=== PATIENT | female | born 1940 | race Caucasian/White ===

== ENCOUNTER 2017-01-26 19:22 | Inpatient (IN) ==
--- NOTE | 2017-01-26 19:42 | Emergency Department Report ---
General Adult HPI - General Stated complaint: Slow heart rate Time Seen by Provider: 01/26/17 19:41 Source: patient, family Mode of arrival: ambulatory Limitations: no limitations - History of Present Illness HPI narrative: Patient is a 76-year-old female, presents emergent primary for evaluation of chest discomfort shortness of breath low heart rate. 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 Patient does normally get exertional dyspnea. Possibly 2:30 today patient had a sudden episode of severe dyspnea now is just feeling very weak. Patient also at that time had chest pressure radiating to her back nausea no diaphoresis. Patient's family became concerned so judit decided to bring patient to the ER for evaluation. Patient's current heart rate 53, patient states she does normally run in the 50s, however has had 2 episodes today where they checked her heart rate it was down in the 30s. Patient also hypertensive, states she took an extra Toprol today. - Related Data Home Medications Medication Instructions Recorded Confirmed Aspirin [Aspir 81] 81 mg PO DAILY #0 09/04/11 01/26/17 Levothyroxine Sodium [Synthroid] 100 mcg PO DAILY #0 09/04/11 01/26/17 Metoprolol Succinate [Toprol Xl] 100 mg PO BID #0 09/04/11 01/26/17 Pramipexole Di-HCl [Mirapex] 0.5 mg PO DAILY #0 09/04/11 01/26/17 Spironolactone [Aldactone] 25 mg PO DAILY #2 09/04/11 01/26/17 Pantoprazole Sodium [Protonix] 40 mg PO BID #0 01/05/12 01/26/17 Bronte 10 mg-acetaminophen 325 mg 1 tab PO PRN PRN 10/05/16 01/26/17 tablet Zyrtec (Cetirizine) 10 mg tablet 10 mg PO DAILY tab 10/05/16 01/26/17 clonidine HCl 0.1 mg tablet 0.1 mg PO BID 10/05/16 01/26/17 hydralazine 25 mg tablet 25 mg PO TID tab 10/05/16 01/26/17 nifedipine ER 30 mg 30 mg PO DAILY tab 10/05/16 01/26/17 tablet,extended release prednisone 1 mg tablet 2 mg PO DAILY tab 10/05/16 01/26/17 Cholecalciferol (Vitamin D3) 4,000 mg PO DAILY 01/26/17 01/26/17 [Vitamin D3] Infliximab [Remicade] 100 mg IV .Q6W 01/26/17 01/26/17 Magnesium Oxide [Magox 400] 400 mg PO DAILY 01/26/17 01/26/17 Nitrofurantoin Macrocrystal 100 mg PO HS 01/26/17 01/26/17 [Nitrofurantoin] Sertraline [Zoloft] 25 mg PO DAILY 01/26/17 01/26/17 Systane Eye Drops 1 drop OP PRN 01/26/17 01/26/17 Allergies Allergy/AdvReac Type Severity Reaction Status Date / Time duloxetine [From Cymbalta] Allergy Severe hostility Verified 01/10/17 13:54 azithromycin Allergy Unknown Verified 01/26/17 19:59 tramadol Allergy Unknown Verified 01/26/17 19:59 verapamil [From Calan] Allergy Unknown Verified 01/26/17 19:59 gabapentin Allergy Verified 01/26/17 19:59 latex Allergy Verified 01/26/17 19:59 pregabalin [From Lyrica] Allergy swelling Verified 01/26/17 19:59 promethazine HCl Allergy Severe aggitation Uncoded 01/26/17 20:00 Procaine HCl Allergy "float" if Uncoded 12/19/16 14:21 given "too much" Review of Systems Constitutional: Denies: fever, chills, weakness ENT: Denies: throat pain, dental pain Cardiovascular: Reports: chest pain, dyspnea on exertion. Denies: palpitations Respiratory: Reports: dyspnea. Denies: cough, wheezes Gastrointestinal: Denies: abdominal pain, nausea, vomiting Genitourinary: Denies: dysuria, frequency Psychiatric: Denies: anxiety, depression Endocrine: Denies: fatigue, heat or cold intolerance Hematological/Lymphatic: Denies: easy bleeding, easy bruising PFSH Patient Stated Medical History Peripheral Neuropathy Yes Macular Degeneration Yes Cardiac Arrhythmia Yes: atrial tachycardia Hypertension Yes Gastroesophageal Reflux Yes Disease Hx Incontinence Yes Osteoarthritis Yes Other Musculoskeletal Yes: ra, fibromyalgia Post Menopausal Yes Clinic Medical History (Last Reviewed 10/19/16 @ 13:39 by Neva Knight MD) Cataracts, bilateral (Acute Medical) Fibromyalgia (Acute Medical) GERD (gastroesophageal reflux disease) (Acute Medical) Hiatal hernia (Acute Medical) High cholesterol (Acute Medical) Hypertension (Acute Medical) Lymphedema (Acute Medical) Neuropathy (Acute Medical) Osteoarthritis (Acute Medical) Restless leg syndrome (Acute Medical) Rheumatoid arthritis (Acute Medical) Thyroid disease (Acute Medical) Surgical History: Appendectomy 1951, Rt arm fracture 1952, Hysterectomy(partial ) 1971, 2 Breast Biopsies , Gall Bladder Removed 2010, Lt CTR 2011, Colonoscopy 2012, Keioplasty L1 L2 2012, Endoscope 2012 & 2014, Internal Hemrrhoidectomy 2013 Family History: Family History (Last Reviewed 10/19/16 @ 13:39 by Neva Knight MD) Mother Stroke Hypertension Thyroid disease Arthritis Father Hypertension Stroke Liver disease Sister Renal cancer Lung cancer Thyroid disease COPD (chronic obstructive pulmonary disease) Brother Stroke - Social History Smoking status: Former smoker Substance use type: does not use Alcohol intake frequency: does not drink Physical Exam - General General appearance: alert, in no apparent distress - Eye Eye exam: Present: PERRL, EOMI - ENT ENT exam: Present: normal oropharynx, mucous membranes moist - Chest Chest inspection: Present: normal inspection, symmetric chest wall rise. Absent : tenderness - Respiratory Respiratory exam: Present: normal lung sounds bilaterally. Absent: respiratory distress, wheezes, stridor - Cardiovascular Cardiovascular exam: Present: regular rate, bradycardia, normal heart sounds - Abdominal Exam Abdominal exam: Present: soft. Absent: distention, tenderness - Back Exam Back exam: Present: full ROM - Skin Skin exam: Present: warm, dry - Neurological Exam Neurological exam: Present: alert, oriented X3 - Psychiatric Psychiatric exam: Present: normal affect, normal mood Course Vital Signs Temperature 97.6 F 01/26/17 19:24 Pulse Rate 54 L 01/26/17 19:24 Respiratory Rate 18 01/26/17 19:24 Blood Pressure 235/98 H 01/26/17 19:24 Pulse Oximetry 95 01/26/17 19:24 Temperature 97.6 F 01/26/17 19:24 Pulse Rate 63 01/26/17 22:30 Respiratory Rate 18 01/26/17 19:24 Blood Pressure 223/92 H 01/26/17 22:30 Pulse Oximetry 95 01/26/17 19:24 Medical Decision Making - MDM Narrative Medical decision making narrative: Acute DE, STEMI, pulmonary embolus, pneumothorax, pneumonia, hypertensive urgency, hypertensive emergency Laboratories are noncontributory EKG and chest x-ray noncontributory, with the exception of elevated d-dimer at 600. CT scan of chest shows no acute findings, patient's blood pressure has remained elevated despite 50 mg of hydralazine total at this time, last blood pressure 205/84. Patient has a listed ALLERGY to verapamil will start nitroprusside Discuss case with Dr. Goodman, he will admit to the CCU - Medical Records Medical records reviewed: Yes: I reviewed the patient's medical records. - Lab Data Lab results reviewed: Yes: I reviewed the patient's lab results. Result diagrams: 01/26/17 19:49 01/26/17 19:49 Lab Results 01/26/17 01/26/17 01/26/17 Range/Units 19:49 19:49 19:49 WBC 3.7 L (4.5-11.0) T/MM3 RBC 3.87 L (4.00-5.20) M/MM3 Hgb 11.8 L (12-16) GM/DL Hct 36.0 (36-46) % MCV 93.0 (80-100) UM3 MCH 30.5 (26-34) UUG MCHC 32.8 (31-37) GM/DL RDW Std Deviation 50.2 (36.9-50.2) FL Plt Count 232 (130-400) T/MM3 MPV 9.1 L (9.4-12.4) UM3 Immature Gran % (Auto) 0.3 (0.0-0.5) % Neut % (Auto) 56.0 (33-66) % Lymph % (Auto) 33.2 (23-45) % [place]eadle % (Auto) 7.8 (0-9.0) % Eos % (Auto) 1.9 (0-4) % Baso % (Auto) 0.8 (0-2) % Neut # 2.1 (1.8-7.7) T/MM3 Lymph # 1.2 (1-4.8) T/MM3 Beadle # 0.3 (0-0.8) T/MM3 Eos # 0.1 (0-0.5) T/MM3 Baso # 0.0 (0-0.2) T/MM3 Abs Immat Gran (auto) 0.01 (0.00-0.03) T/MM3 D-Dimer 601 H (0-230) NG/ML Turbidity < 20 (0-20) Sodium 141 (134-144) MEQ/L Potassium 4.0 (3.6-5) MEQ/L Chloride 108 H (98-107) MEQ/L Carbon Dioxide 22 (22-30) MEQ/L Anion Gap 11 (5-15) MEQ/L BUN 22.0 H (7-17) MG/DL Creatinine 1.2 (0.7-1.2) MG/DL GFR Calculation 44 BUN/Creatinine Ratio 18 (6-26) RATIO Glucose 95 (65-110) MG/DL Calculated Osmolality 274 (261-280) MOSM/KG Calcium 9.2 (8.4-10.2) MG/DL Total Bilirubin 0.70 (0.20-1.30) MG/DL Icterus Index < 2 (0-7) AST 34 (14-36) U/L ALT 38 (9-52) U/L Alkaline Phosphatase 78 (38-126) U/L Troponin I < 0.012 (0-0.12) ng/ml B-Natriuretic Peptide 381 H (0-175) pg/mL Total Protein 8.2 (6.3-8.2) G/DL Albumin 4.0 (3.5-5.0) G/DL Globulin 4.2 H (2.4-3.6) G/DL Albumin/Globulin Ratio 1.0 L (1.1-2.2) RATIO Specimen Hemolysis < 15 (0-25) - Radiology Data Radiology results reviewed: Yes: I reviewed the patient's radiology results. Chest x-ray chronic changes no acute findings CT scan chest: No pulmonary emboli - EKG Data EKG #1 EKG attestation: Yes: I reviewed and interpreted this EKG. EKG shows normal: sinus rhythm Rate: bradycardia Rhythm: NSR [place]/QRS: normal Interpretation: no acute changes Disposition Clinical Impression: Hypertensive urgency, malignant Disposition: 02 To [facility] Acute Care Condition: Improved Prescriptions: No Action Levothyroxine Sodium [Synthroid] 100 mcg PO DAILY #0 Aspirin [Aspir 81] 81 mg PO DAILY #0 Spironolactone [Aldactone] 25 mg PO DAILY #2 Systane Eye Drops 1 drop OP PRN Cholecalciferol (Vitamin D3) [Vitamin D3] 4,000 mg PO DAILY Sertraline [Zoloft] 25 mg PO DAILY Nitrofurantoin Macrocrystal [Nitrofurantoin] 100 mg PO HS Metoprolol Succinate [Toprol Xl] 100 mg PO BID #0 Pramipexole Di-HCl [Mirapex] 0.5 mg PO DAILY #0 Pantoprazole Sodium [Protonix] 40 mg PO BID #0 Infliximab [Remicade] 100 mg IV .Q6W Magnesium Oxide [Magox 400] 400 mg PO DAILY prednisone 1 mg tablet 2 mg PO DAILY tab Bronte 10 mg-acetaminophen 325 mg tablet 1 tab PO PRN PRN PRN Reason: Pain clonidine HCl 0.1 mg tablet 0.1 mg PO BID nifedipine ER 30 mg tablet,extended release 30 mg PO DAILY tab Zyrtec (Cetirizine) 10 mg tablet 10 mg PO DAILY tab hydralazine 25 mg tablet 25 mg PO TID tab Referrals: Vilma Concepcion DO [Family Provider] - - Seen By: physician
[2017-01-26] MEDS ORDERED: ASPIRIN 81 MG CHEWABLE TABLET PO ONE (19:44)
--- OUTSIDE RECORDS SUMMARY | 2017-01-26 19:49 | External Medical Summary | Referral Summary ---
:1940 Author Organization [facility] Address [address] [place] [address] Care Team Providers Name Role Phone Concepcion Vilma Cullen Primary Care Physician Encounter VC Date(s): 03/13/15 - 03/13/15 [facility] [address] [place] [address] [phone] Final: Abnormal results of pulmonary function studies Discharge Disposition: 01-Home or Self Care Attending Physician: Amadou Miranda MD Admitting Physician: Saira Briones AMS Vital Signs No data available for this section Problem List No data available for this section Allergies, Adverse Reactions, Alerts Substance Reaction Severity Status azithromycin Tongue swelling Active Calan Active Phenergan Active pregabalin Active Symbicort Active traMADol pass out Active Medications cloNIDine 0.1 mg oral tablet mg tabs, Oral, BID, 0 Refill(s) Start Date: 09/26/14 Status: Orderedlevothyroxine 100 mcg (0.1 mg) oral tablet mcg tabs, Oral, Daily, 0 Refill(s) Start Date: 09/26/14 Status: OrderedMetanx Oral, Daily, 0 Refill(s) Start Date: 09/26/14 Status: Orderedpramipexole 0.5 mg oral tablet mg tabs, Oral, TID, 0 Refill(s) Start Date: 09/26/14 Status: Orderedspironolactone 25 mg oral tablet mg tabs, Oral, BID, 0 Refill(s) Start Date: 09/26/14 Status: OrderedToprol-XL 100 mg oral tablet, extended release mg tabs, Oral, Daily, 0 Refill(s) Start Date: 5/15/15 Status: Ordered Results No data available for this section Immunizations No data available for this section Procedures No data available for this section Social History No data available for this section Assessment and Plan No data available for this section
--- OUTSIDE RECORDS SUMMARY | 2017-01-26 19:49 | External Medical Summary | Referral Summary ---
:1940 Author Organization [facility], [facility] Address [address] [place] [address] [place] [address] Care Team Providers Name Role Phone CarleneVilma Primary Care Physician Encounter VC Date(s): 09/26/14 - 09/26/14 [facility], [address] [place] [phone] [phone] Discharge Disposition: 01-Home or Self Care Attending Physician: Mk Lopez MD Admitting Physician: Mk Lopez MD Vital Signs Most recent to oldest [Reference Range]: 1 Temperature Tympanic [36.6-38.1 degC] 37.4 degC (09/26/14 5:12 PM) Peripheral Pulse Rate [60-100 bpm] 74 bpm (09/26/14 5:12 PM) Blood Pressure [90-140/60-90 mmHg] 150/72 mmHg *HI* (09/26/14 5:12 PM) SpO2 94 % (09/26/14 5:12 PM) Problem List No data available for this [...] Daily, 0 Refill(s) Start Date: 09/26/14 Status: Ordered Results No data available for this section Immunizations No data available for this section Procedures No data available for this section Social History No data available for this section Assessment and Plan Extracted from: Title: Office Visit Note Author: Mk Lopez MD Date: 09/26/14 Assessment/Plan Acute bronchitis The overall history and exam is consistent with bronchitis. I would recommend netipot sinus 2 to 3 x a day if you are having trouble with nasal drainage. Mucinex is ok for the cough. If you are not improving by next week call us. If you are experiencing any concerning symptoms call or go to the ER. Orders: amoxicillin-clavulanate, 1 tabs, Oral, q12hr, X 10 days, # 20 tabs, 0 Refill(s), Pharmacy: [id number]
--- OUTSIDE RECORDS SUMMARY | 2017-01-26 19:49 | External Medical Summary | Referral Summary ---
:1940 Author Organization [facility] Address [address] [place] [address] Care Team Providers Name Role Phone Carlene Vilma Cullen Primary Care Physician Encounter VC Date(s): 03/13/15 - 03/13/15 [facility] [address] [place] [address] Discharge Disposition: 01-Home or Self Care Attending Physician: Saira Briones AMS Vital Signs No [...]
[2017-01-26] MEDS ORDERED: HYDRALAZINE 20 MG/ML INJECTION IVP ONE ×3 (19:55→22:24)
[2017-01-26] MEDS: SALINE FLUSH 10ml SYRINGE IVF PRN ×2 (20:20→22:30)
[2017-01-26] MEDS ORDERED: IOHEXOL 350mg/ml 75ml INJECTION ONE (20:46)
[2017-01-26] MEDS ORDERED: SALINE FLUSH 10ml SYRINGE ONE (20:46)
[2017-01-26] MEDS ORDERED: NS 100 ML ONE (20:46)
[2017-01-26] MEDS: NITROPRUSSIDE 50 MG in D5W 250 ML IV PRN (23:23)
[2017-01-26 23:56] VITALS: BMI 43.3
--- NOTE | 2017-01-27 00:27 | History & Physical Report ---
<Arturo Nguyen - Last Filed: 01/27/17 00:22> History of Present Illness Date: 01/27/17 Chief complaint: dyspnea HPI: This is a 76 y/o female with a long standing history of HTN. She is managed by several anti hypertensive medications. Today around 2:30 she had a rather sudden onset of shortness of breath. This has not happened before The patient took her blood pressure and it was significantly elevated. The patient had a brief episode of chest pressure. She also had a mild frontal headache. Because of the shortness of breath and ongoing HTN, the patient presented to the ED where in fact her blood pressure was 205/84 at it's best. The patient states that she usually is in the 120's systolic. The patient denies any recent changes in her medications. She denies any over the counter medications. Attempts to improve the patient's blood pressure with hydralazine were unsuccessful. The patient is admitted into the [facility] on nitroprusside gtt ( allergic to ca krysta) and further cardiac evaluation ongoing. The patient denies any focal neurological concerns. The patient reports that she had a heart cath in the past that was reported to be negative. 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 The patient did have a CT chest angio that was negative for clot. Review of Systems Review of systems: mild headache, no change in vision, no neck or jaw pain, increased dyspnea that is improved but still noticed tonight. no PND or orthopnea,brief chest pressure that was resolved prior to ED presentation. no heart palpitations. Patient noted bradycardia afte she took an exta b krysta to manage her blood pressure, no nausea or vomiting. patient has had a band like abdomen pressure that has been present for a period of time (not clear how long). no change in BM, no urine symptoms, no focal neuro complatints. 12 point ROS otherwise negative except for outlined above [facility] Clinic Medical History (Last Reviewed 10/19/16 @ 13:39 by Neva Knight MD) Cataracts, bilateral (Acute Medical) Fibromyalgia (Acute Medical) GERD (gastroesophageal reflux disease) (Acute Medical) Hiatal hernia (Acute Medical) High cholesterol (Acute Medical) Hypertension (Acute Medical) Lymphedema (Acute Medical) Neuropathy (Acute Medical) Osteoarthritis (Acute Medical) Restless leg syndrome (Acute Medical) Rheumatoid arthritis (Acute Medical) Thyroid disease (Acute Medical) Surgical History: Appendectomy 1951, Rt arm fracture 1952, Hysterectomy(partial ) 1971, 2 Breast Biopsies , Gall Bladder Removed 2010, Lt CTR 2011, Colonoscopy 2012, Keioplasty L1 L2 2012, Endoscope 2012 & 2014, Internal Hemrrhoidectomy 2013 Family History: Family History (Last Reviewed 10/19/16 @ 13:39 by Neva Knight MD) Mother Stroke Hypertension Thyroid disease Arthritis Father Hypertension Stroke Liver disease Sister Renal cancer Lung cancer Thyroid disease COPD (chronic obstructive pulmonary disease) Brother Stroke - Social History Smoking status: Former smoker Medications Home Medications Medication Instructions Recorded Confirmed Type Aspirin [Aspir 81] 81 mg PO DAILY #0 09/04/11 01/26/17 History Levothyroxine Sodium [Synthroid] 100 mcg PO DAILY #0 09/04/11 01/26/17 History Metoprolol Succinate [Toprol Xl] 100 mg PO BID #0 09/04/11 01/26/17 History Pramipexole Di-HCl [Mirapex] 0.5 mg PO DAILY #0 09/04/11 01/26/17 History Spironolactone [Aldactone] 25 mg PO DAILY #2 09/04/11 01/26/17 History Pantoprazole Sodium [Protonix] 40 mg PO BID #0 01/05/12 01/26/17 History [place] 10 mg-acetaminophen 325 mg 1 tab PO PRN PRN 10/05/16 01/26/17 History tablet Zyrtec (Cetirizine) 10 mg tablet 10 mg PO DAILY tab 10/05/16 01/26/17 History clonidine HCl 0.1 mg tablet 0.1 mg PO BID 10/05/16 01/26/17 History hydralazine 25 mg tablet 25 mg PO TID tab 10/05/16 01/26/17 History nifedipine ER 30 mg 30 mg PO DAILY tab 10/05/16 01/26/17 History tablet,extended release prednisone 1 mg tablet 2 mg PO DAILY tab 10/05/16 01/26/17 History Cholecalciferol (Vitamin D3) 4,000 mg PO DAILY 01/26/17 01/26/17 History [Vitamin D3] Infliximab [Remicade] 100 mg IV .Q6W 01/26/17 01/26/17 History Magnesium Oxide [Magox 400] 400 mg PO DAILY 01/26/17 01/26/17 History Nitrofurantoin Macrocrystal 100 mg PO HS 01/26/17 01/26/17 History [Nitrofurantoin] Sertraline [Zoloft] 25 mg PO DAILY 01/26/17 01/26/17 History Systane Eye Drops 1 drop OP PRN 01/26/17 01/26/17 History Allergies Allergy/AdvReac Type Severity Reaction Status Date / Time duloxetine [From Cymbalta] Allergy Severe hostility Verified 01/27/17 00:33 azithromycin Allergy Unknown Verified 01/26/17 19:59 tramadol Allergy Unknown Fainting Verified 01/27/17 09:02 verapamil [From Calan] Allergy Unknown Abdominal Verified 01/27/17 09:02 Pain budesonide [From Symbicort] Allergy Mood Verified 01/27/17 09:04 Disturbance formoterol [From Symbicort] Allergy Mood Verified 01/27/17 09:04 Disturbance gabapentin Allergy Verified 01/26/17 19:59 latex Allergy sensitive Verified 01/27/17 09:03 pregabalin [From Lyrica] Allergy swelling Verified 01/26/17 19:59 promethazine HCl Allergy Severe aggitation Uncoded 01/26/17 20:00 Procaine HCl Allergy Unknown "float" if Uncoded 01/27/17 09:04 given "too much" Exam Vital Signs: Temperature 97.6 F 01/26/17 19:24 Pulse Rate 63 01/26/17 22:30 Respiratory Rate 16 01/26/17 21:15 Blood Pressure 223/92 H 01/26/17 22:30 Pulse Oximetry 94 01/26/17 21:15 Telemetry Rhythm: Sinus Rhythm Height/Weight/BMI: Height 1.63 m Weight 114.6 kg Body Mass Index 43.3 - Constitutional Present: no acute distress, well nourished, well developed, obese, cooperative. Absent: combative, agitated, somnolent, obtunded - Routine HEENT Exam Head: Present: normocephalic, atraumatic Eye: Present: EOMI, PERRL, conjunctivae pink. Absent: scleral injection ENT: Present: mucous membranes moist - Routine Neck Exam Present: supple, full ROM - Routine Respiratory Exam Present: CTA bilaterally Comments: occasional rhonchi in bilateal bases - Routine Cardiovascular Exam Present: RRR, no murmur - Routine Abdominal Exam Present: soft, normoactive bowel sounds, non distended, non tender. Absent: tenderness - Routine Extremities Exam Present: edema, full ROM - Routine Back/Spine/Pelvis Exam Back/Spine: Present: full ROM - Routine Skin Exam Present: intact - Routine Neurological Exam Present: alert, oriented X3, CN II-XII intact, moving all extremities, normal tone, vision grossly intact, hearing grossly intact, normal speech. Absent: sensory deficit, motor deficit, altered mental status, facial asymmetry - Routine Psychiatric Exam Present: normal affect, normal thought process Results - Labs CBC & Chem 7: 01/26/17 19:49 01/26/17 19:49 - ECG Data Tracing #1 normal sinus, no ischemia, suprisingly not significant HtN findings - Imaging and Cardiology CT scan - chest Additional comments: no clot Assessment and Plan (1) Hypertensive urgency, malignant Current visit: Yes Status: Acute 01/27/17 00:34 patient has significantly elevated blood pressure with mild headache and brief chest pain with dyspnea. no evidence of chf on examination or by radioautographic process. patient on b krysta, aldactone, ? catapress, ? hydralazine. need to complete med rec. for now with history of allergyto verapamil cannot do cardene gtt. with gallo with b krysta reported cannot do esmolol drip. Would not recommend NTG gtt yet. Thus ED started nipride. will use this overnight realizing that this cannot be used over ?24 hours or less ( pharmacy can remind) as risk of CN buildup. Not much room to go on b krysta. Not clear why the increased blood pressure. reassess in the am. Obviously monitor on tele with neuro checks. (2) Rheumatoid arthritis Current visit: Yes Status: Acute 01/27/17 00:37 chronic. on remicaid now. MTX toxicity pulmonary. reasonably stable. doubt has any impact on HTN issues tonight (3) Pulmonary fibrosis Current visit: Yes Status: Acute 01/27/17 00:38 relating to MTX toxictiy. no oxygen needs. pulm exam relatively benign. to be aware of (4) GERD (gastroesophageal reflux disease) Current visit: Yes Status: Acute 01/27/17 00:38 continue PPI (5) RLS (restless legs syndrome) Current visit: Yes Status: Acute 01/27/17 00:39 continue mirapex (6) Hypothyroid Current visit: Yes Status: Acute 01/27/17 00:39 continue synthroid DVT Prophylaxis: SCD's, SQ Heparin GI Prophylaxis: Protonix Hospital Course Summary Disclaimer: The visit summary below is not to be considered part of the above Progress Note. <Francisco Escobedo - Last Filed: 01/27/17 11:51> History of Present Illness Date: 01/27/17 [facility] Patient Stated Medical History Migraine Yes Peripheral Neuropathy Yes Macular Degeneration Yes Cardiac Arrhythmia Yes: atrial tachycardia Hypertension Yes Sleep Apnea Yes: borderline Gastroesophageal Reflux Yes Disease Hiatal Hernia Yes Hx Incontinence Yes: night time Osteoarthritis Yes Other Musculoskeletal Yes: ra, fibromyalgia, neuropathy Post Menopausal Yes Other Reproductive uterus removed Clinic Medical History (Last Reviewed 10/19/16 @ 13:39 by Neva Knight MD) Cataracts, bilateral (Acute Medical) Fibromyalgia (Acute Medical) GERD (gastroesophageal reflux disease) (Acute Medical) Hiatal hernia (Acute Medical) High cholesterol (Acute Medical) Hypertension (Acute Medical) Lymphedema (Acute Medical) Neuropathy (Acute Medical) Osteoarthritis (Acute Medical) Restless leg syndrome (Acute Medical) Rheumatoid arthritis (Acute Medical) Thyroid disease (Acute Medical) Family History: Family History (Last Reviewed 10/19/16 @ 13:39 by Neva Knight MD) Mother Stroke Hypertension Thyroid disease Arthritis Father Hypertension Stroke Liver disease Sister Renal cancer Lung cancer Thyroid disease COPD (chronic obstructive pulmonary disease) Brother Stroke Exam Vital Signs: Temperature 99.9 F 01/27/17 06:45 Pulse Rate 73 01/27/17 07:00 Respiratory Rate 28 H 01/27/17 07:00 Blood Pressure 159/71 H 01/27/17 07:00 Pulse Oximetry 95 01/27/17 07:00 Height/Weight/BMI: Height 5 ft 4 in Weight 114.6 kg Body Mass Index 43.3 Results - Labs CBC & Chem 7: 01/27/17 08:31 01/27/17 08:32 Assessment and Plan (1) Hypertensive urgency, malignant Current visit: Yes Status: Acute (2) Rheumatoid arthritis Current visit: Yes Status: Acute (3) Pulmonary fibrosis Current visit: Yes Status: Acute (4) GERD (gastroesophageal reflux disease) Current visit: Yes Status: Acute (5) RLS (restless legs syndrome) Current visit: Yes Status: Acute (6) Hypothyroid Current visit: Yes Status: Acute Assessment and Plan: SUMMARY - Pt has H.O HTN and has been on Clonidine and BB at home, with previous excellent control per her . Pt was placed on Nipride drip and her BP is better. stated pt has been having fibromyalgia with L sided Chest pain that comes and goes. On PE NC/AT TAE Well hydrated Chest clear Abd - soft NT/ND Ext - No edema A/P 1) Uncontrolled HTN, possibly associated with CHF and moderate pulmonary congestion causing her SOB - better with Nipride - Resume Hydralazine - Resume BB at a lower dose (HR is in the 70's) - Resume Clonidine. 2) Atypical CP, could be related to RA or Fibromyalgia but also pt may have CAD - TnI negative. - Cardiology opinion to risk stratify 3) Pulmonary infiltrates - Could be related to Rheumatoid lung, due fibrosis/MTX or edema - Since pt is stable will recheck CXR in the AM - if gone then pulmonary edema could be the explanation. Prevention Lovenox PPI. - Time spent with patient 25 - 35 minutes Hospital Course Summary Disclaimer: The visit summary below is not to be considered part of the above Progress Note.
[2017-01-27] MEDS ORDERED: HEPARIN 5,000unit/ml 1ml INJECTION SUB-Q SCH (00:46)
[2017-01-27] MEDS ORDERED: MORPHINE SULFATE 2 MG SYRINGE IVP PRN (00:46)
[2017-01-27] MEDS ORDERED: ONDANSETRON 4 MG/2 ML INJECTION IVP PRN (06:13)
[2017-01-27] MEDS: SALINE FLUSH 10ml SYRINGE IVF PRN (06:15)
[2017-01-27] MEDS: LEVOTHYROXINE 100 MCG TABLET PO SCH (07:38)
--- NOTE | 2017-01-27 08:00 | CT Scan Report ---
Indication: chest pressure shortness of air elevated d-dimer PROCEDURE: CT angio pulm emboli: Encounter: Initial Comparison: CT chest dated February 11, 2015 Technique: Axial CT pulmonary angiographic phase images were performed through the chest after the administration of intravenous contrast. Coronal and Sagittal MIP reconstructed images were created and reviewed. Automated Exposure Control and Iterative Reconstruction dose reducing techniques were utilized. Contrast: Omnipaque 350 70 mL Findings: Pulmonary arteries: Exam is diagnostic to the subsegmental pulmonary arterial level. No filling defects identified to suggest a pulmonary embolus. Other findings: Stable right upper lobe groundglass nodule and subpleural nodular opacities in the right middle lobe and subpleural atelectasis and scarring.. Slightly increased groundglass opacity in the left upper lobe. No pleural effusion or pneumothorax. The central airways are patent. No axillary or mediastinal adenopathy. Heart size is stable. No pericardial effusion. The upper abdomen shows no acute findings. Bone windows show degenerative changes in the spine with central spinal canal osteophytes at T10-T11 and prior vertebroplasty at L1. Impression: No pulmonary embolus. Scattered pulmonary opacities, many of which are chronic although superimposed acute infection or inflammation cannot be entirely excluded in the left upper lobe. .
--- NOTE | 2017-01-27 08:01 | XRay Report ---
Indication: shortness of air PROCEDURE: XR chest 1V: Encounter: Initial Comparison: CT angiogram of the chest from the same date Findings: Scattered groundglass opacities in the lungs are better seen on the chest CT. No pleural effusion or pneumothorax. Heart size and mediastinal contours are within normal limits. Pulmonary vascularity is normal. Impression: Scattered pulmonary opacities better seen on CT could be due to infection, inflammation or scarring. .
[2017-01-27] MEDS ORDERED: SERTRALINE 25 MG TABLET PO SCH (09:00)
[2017-01-27] MEDS ORDERED: PRAMIPEXOLE 0.5 MG TABLET PO SCH (09:00)
[2017-01-27] MEDS: NITROPRUSSIDE 50 MG in D5W 250 ML IV PRN (09:08)
[2017-01-27] MEDS: HEPARIN SUB-Q 5,000 UNITS/0.5 ML INJECTION SQ SCH ×3 (09:50→23:16)
[2017-01-27] MEDS: ASPIRIN *EC* 81 MG TABLET PO SCH (09:51)
[2017-01-27] MEDS: MAGNESIUM OXIDE 400 MG TABLET PO SCH (09:51)
[2017-01-27] MEDS: PANTOPRAZOLE 40 MG TABLET PO SCH ×2 (09:52→20:58)
[2017-01-27] MEDS: HYDRALAZINE 25 MG TABLET PO SCH ×3 (10:00→19:16)
--- NOTE | 2017-01-27 11:00 | Cardiology Consult Note ---
History of Present Illness Consult date: 01/27/17 <Lorena Adams 01/27/17 11:51> Requesting physician: Francisco Escobedo <Lorena Adams 01/27/17 11:51> Consult reason: chest pain <Lorena Adams 01/27/17 11:51> Chief complaint: dyspnea, chest pain <Lorena Adams 01/27/17 11:51> History of present illness: Neetu is a 76 year old female with a long standing history of HTN. She is managed by several anti hypertensive medications. Yesterday, she had a rather sudden onset of shortness of breath that has not happened before She took her blood pressure and it was significantly elevated and she had a brief episode of chest pressure. She took an extra Toprol XL which was prescribed to her for tachycardia. She also had a mild frontal headache. Because of the shortness of breath and ongoing HTN, she presented to the ED where in fact her blood pressure was 205/84. The patient states that she usually is in the 120's systolic. She denies any recent changes in her medications. She denies any over the counter medications. Attempts to improve the patient's blood pressure with hydralazine were unsuccessful. The patient was admitted into the ICU on nitroprusside gtt with further cardiac evaluation ongoing. She reports that she had a heart cath in the past, she thinks about 10 years ago that was reported to be negative. She does have a history of pulmonary fibrosis from MTX toxicity. In the ED she did have a CT chest angio that was negative for pulmonary emboli. She is seen and examined in CCU. She states chest pressure associated with with SOA was mild like someone was pressing a hand on her chest. She denies recent illness, fever, chills, cough, sore throat, chest pain, N/V/D or difficulty with urination. <Lorena Adams 01/27/17 11:51> Review of Systems - Constitutional Constitutional: Absent: chills, fatigue, fever(s) <Lorena Adams 01/27/17 11:51> - EENMT Eyes: Absent: change in vision <Lorena Adams 01/27/17 11:51> Balance: Absent: vertigo <Lorena Adams 01/27/17 11:51> Mouth/Throat: Absent: sore throat <Lorena Adams 01/27/17 11:51> - Cardiovascular Cardiovascular: Present: chest pain (pressure, not pain), dyspnea on exertion, edema. Absent: palpitations, syncope, orthopnea <Lorena Admas 01/27/17 11 :51> Rhythm: Present: regular rhythm <Lorena Adams 01/27/17 11:51> Vascular: Present: intermittent claudication, pedal edema <BryanLorena melchor 11:51> - Respiratory Respiratory: Present: dyspnea, dyspnea on exertion. Absent: cough <Lorena Adams 01/27/17 11:51> - Gastrointestinal Gastrointestinal: Absent: abdominal pain, constipation, diarrhea, nausea, vomiting <Lorena Adams 01/27/17 11:51> - Genitourinary Genitourinary: Absent: dysuria <Lorena Adams 01/27/17 11:51> - Neurological Neurological: Present: headache(s). Absent: dizziness <Lorena Adams 01/27 11:51> - Endocrine Endocrine: Absent: palpitations <Lorena Adams 01/27/17 11:51> [facility] Patient Stated Medical History Migraine Yes Peripheral Neuropathy Yes Macular Degeneration Yes Cardiac Arrhythmia Yes: atrial tachycardia Hypertension Yes Sleep Apnea Yes: borderline Gastroesophageal Reflux Yes Disease Hiatal Hernia Yes Hx Incontinence Yes: night time Osteoarthritis Yes Other Musculoskeletal Yes: ra, fibromyalgia, neuropathy Post Menopausal Yes Other Reproductive uterus removed Clinic Medical History (Last Reviewed 10/19/16 @ 13:39 by Neva Knight MD) Cataracts, bilateral (Acute Medical) Fibromyalgia (Acute Medical) GERD (gastroesophageal reflux disease) (Acute Medical) Hiatal hernia (Acute Medical) High cholesterol (Acute Medical) Hypertension (Acute Medical) Lymphedema (Acute Medical) Neuropathy (Acute Medical) Osteoarthritis (Acute Medical) Restless leg syndrome (Acute Medical) Rheumatoid arthritis (Acute Medical) Thyroid disease (Acute Medical) <Elia Champion - 02/03/17 13:52> Patient Stated Medical History Migraine Yes Peripheral Neuropathy Yes Macular Degeneration Yes Cardiac Arrhythmia Yes: atrial tachycardia Hypertension Yes Sleep Apnea Yes: borderline Gastroesophageal Reflux Yes Disease Hiatal Hernia Yes Hx Incontinence Yes: night time Osteoarthritis Yes Other Musculoskeletal Yes: ra, fibromyalgia, neuropathy Post Menopausal Yes Other Reproductive uterus removed Clinic Medical History (Last Reviewed 10/19/16 @ 13:39 by Neva Knight MD) Cataracts, bilateral (Acute Medical) Fibromyalgia (Acute Medical) GERD (gastroesophageal reflux disease) (Acute Medical) Hiatal hernia (Acute Medical) High cholesterol (Acute Medical) Hypertension (Acute Medical) Lymphedema (Acute Medical) Neuropathy (Acute Medical) Osteoarthritis (Acute Medical) Restless leg syndrome (Acute Medical) Rheumatoid arthritis (Acute Medical) Thyroid disease (Acute Medical) <Lorena Adams 01/27/17 11:51> Surgical History: Appendectomy 1951, Rt arm fracture 1952, Hysterectomy(partial ) 1971, 2 Breast Biopsies , Gall Bladder Removed 2010, Lt CTR 2011, Colonoscopy 2012, Keioplasty L1 L2 2012, Endoscope 2012 & 2014, Internal Hemrrhoidectomy 2013 <Lorena Adams 01/27/17 11:51> Family History: Family History (Last Reviewed 10/19/16 @ 13:39 by Neva Knight MD) Mother Stroke Hypertension Thyroid disease Arthritis Father Hypertension Stroke Liver disease Sister Renal cancer Lung cancer Thyroid disease COPD (chronic obstructive pulmonary disease) Brother Stroke <Elia Champion - 02/03/17 13:52> Family History (Last Reviewed 10/19/16 @ 13:39 by Neva Knight MD) Mother Stroke Hypertension Thyroid disease Arthritis Father Hypertension Stroke Liver disease Sister Renal cancer Lung cancer Thyroid disease COPD (chronic obstructive pulmonary disease) Brother Stroke <Lorena Adams 01/27/17 11:51> - Social History Smoking status: Former smoker <Lorena Adams 01/27/17 11:51> Alcohol intake frequency: does not drink <Lorena Adams 01/27/17 11:51> Household members: spouse <Lorena Adams 01/27/17 11:51> Current occupational status: retired <Lorena Adams 01/27/17 11:51> Current residence: Apartment/Private Home <Lorena Adams 01/27/17 11:51> Medications Home Medications Medication Instructions Recorded Confirmed Type Aspirin [Aspir 81] 81 mg PO DAILY #0 09/04/11 01/26/17 History Levothyroxine Sodium [Synthroid] 100 mcg PO DAILY #0 09/04/11 01/26/17 History Pramipexole Di-HCl [Mirapex] 0.5 mg PO DAILY #0 09/04/11 01/26/17 History Spironolactone [Aldactone] 25 mg PO DAILY #2 09/04/11 01/26/17 History Pantoprazole Sodium [Protonix] 40 mg PO BID #0 01/05/12 01/26/17 History Sharon 10 mg-acetaminophen 325 mg 1 tab PO PRN PRN 10/05/16 01/26/17 History tablet Zyrtec (Cetirizine) 10 mg tablet 10 mg PO DAILY tab 10/05/16 01/26/17 History hydralazine 25 mg tablet 25 mg PO TID tab 10/05/16 01/26/17 History prednisone 1 mg tablet 2 mg PO DAILY tab 10/05/16 01/26/17 History Cholecalciferol (Vitamin D3) 4,000 mg PO DAILY 01/26/17 01/26/17 History [Vitamin D3] Infliximab [Remicade] 100 mg IV .Q6W 01/26/17 01/26/17 History Magnesium Oxide [Magox 400] 400 mg PO DAILY 01/26/17 01/26/17 History Sertraline [Zoloft] 25 mg PO DAILY 01/26/17 01/26/17 History Systane Eye Drops 1 drop OP PRN 01/26/17 01/26/17 History <Elia Champion - 02/03/17 13:52> Allergies Allergy/AdvReac Type Severity Reaction Status Date / Time duloxetine [From Cymbalta] Allergy Severe hostility Verified 01/27/17 00:33 azithromycin Allergy Unknown Verified 01/26/17 19:59 tramadol Allergy Unknown Fainting Verified 01/27/17 09:02 verapamil [From Calan] Allergy Unknown Abdominal Verified 01/27/17 09:02 Pain budesonide [From Symbicort] Allergy Mood Verified 01/27/17 09:04 Disturbance formoterol [From Symbicort] Allergy Mood Verified 01/27/17 09:04 Disturbance gabapentin Allergy Verified 01/26/17 19:59 latex Allergy sensitive Verified 01/27/17 09:03 pregabalin [From Lyrica] Allergy swelling Verified 01/26/17 19:59 promethazine HCl Allergy Severe aggitation Uncoded 01/26/17 20:00 Procaine HCl Allergy Unknown "float" if Uncoded 01/27/17 09:04 given "too much" <Elia Champion - 02/03/17 13:52> Exam Vital signs: Temperature 96.7 F L 01/31/17 11:56 Pulse Rate 57 L 01/31/17 11:56 Respiratory Rate 12 01/31/17 11:56 Blood Pressure 130/65 01/31/17 11:56 Pulse Oximetry 93 01/31/17 11:56 <Elia Champion - 02/03/17 13:52> Temperature 99.9 F 01/27/17 06:45 Pulse Rate 73 01/27/17 07:00 Respiratory Rate 28 H 01/27/17 07:00 Blood Pressure 159/71 H 01/27/17 07:00 Pulse Oximetry 95 01/27/17 07:00 <Lorena Adams 01/27/17 11:51> - Constitutional no acute distress, morbidly obese, cooperative <Lorena Adams 01/27/17 11: 51> - Routine HEENT Exam Head: Present: normocephalic <Lorena Adams 01/27/17 11:51> ENT: Present: mucous membranes moist <Lorena Adams 01/27/17 11:51> - Routine Neck Exam Absent: JVD, carotid bruit <Lorena Adams 01/27/17 11:51> - Routine Chest/Breast/Axilla Exam Chest wall: Absent: tenderness <Lorena Adams 01/27/17 11:51> - Routine Respiratory Exam Present: CTA bilaterally, diminished air movement. Absent: rales, wheezes < Lorena Adams 01/27/17 11:51> - Routine Cardiovascular Exam Present: RRR, no murmur. Absent: JVD <Lorena Adams 01/27/17 11:51> - Routine Abdominal Exam Present: soft, normoactive bowel sounds <Lorena Adams 01/27/17 11:51> - Routine Extremities Exam Present: edema (trace bilateral) <Lorena Adams - 01/27/17 11:51> - Routine Skin Exam Present: intact, dry, warm <Lorena Adams - 01/27/17 11:51> - Routine Neurological Exam Present: alert, oriented X3 <Lorena Adams - 01/27/17 11:51> - Routine Psychiatric Exam Present: normal affect, normal thought process <Lorena Adams - 01/27/17 11: 51> Results 01/31/17 04:32 01/31/17 04:33 <Elia Champion - 02/03/17 13:52> Cardiac Enzymes 01/27/17 01/27/17 Range/Units 03:00 08:32 AST 35 (14-36) U/L Troponin I 0.013 0.027 D (0-0.12) ng/ml CBC 01/27/17 01/27/17 Range/Units 03:00 08:31 WBC 4.1 L 3.7 L (4.5-11.0) T/MM3 RBC 3.88 L 3.65 L (4.00-5.20) M/MM3 Hgb 12.0 11.1 L (12-16) GM/DL Hct 38.0 34.2 L (36-46) % Plt Count 232 233 (130-400) T/MM3 Neut # 2.6 2.3 (1.8-7.7) T/MM3 Lymph # 1.1 1.1 (1-4.8) T/MM3 [place] # 0.3 0.2 (0-0.8) T/MM3 Eos # 0.1 0.0 (0-0.5) T/MM3 Baso # 0.0 0.0 (0-0.2) T/MM3 Comprehensive Metabolic Panel 01/27/17 01/27/17 Range/Units 03:00 08:32 Sodium 140 140 (134-144) MEQ/L Potassium 3.9 4.2 (3.6-5) MEQ/L Chloride 108 H 109 H (98-107) MEQ/L Carbon Dioxide 20 L 22 (22-30) MEQ/L BUN 21.0 H 20.0 H (7-17) MG/DL Creatinine 1.2 1.3 H D (0.7-1.2) MG/DL Glucose 116 H 109 (65-110) MG/DL Calcium 9.0 9.0 (8.4-10.2) MG/DL AST 35 (14-36) U/L ALT 36 (9-52) U/L Alkaline Phosphatase 70 (38-126) U/L Total Protein 7.6 (6.3-8.2) G/DL Albumin 3.7 (3.5-5.0) G/DL Intake and Output 01/26/17 01/27/17 01/27/17 22:59 06:59 14:59 Intake Total 162.041 / 162.041 206.48 / 206.48 Output Total 225 / 225 Balance -62.959 / -62.959 206.48 / 206.48 Intake: IV 132.041 / 132.041 86.48 / 86.48 Nipride 50 mg In Dextrose 132.041 / 132.041 86.48 / 86.48 5% in Water 250 ml @ 0.3 MCG/KG/MIN 11.64 mls/hr IV .[id number] PRN Rx#: [id number] Oral 30 / 30 120 / 120 Output: Urine 225 / 225 Other: Urine Appearance Clear Urine Color Yellow Weight 252 lb 10.396 oz Laboratory Results - last 48 hr 01/26/17 01/26/17 01/26/17 19:49 19:49 19:49 WBC 3.7 L RBC 3.87 L Hgb 11.8 L Hct 36.0 MCV 93.0 MCH 30.5 MCHC 32.8 RDW Std Deviation 50.2 Plt Count 232 MPV 9.1 L Immature Gran % (Auto) 0.3 Neut % (Auto) 56.0 Lymph % (Auto) 33.2 [place] % (Auto) 7.8 Eos % (Auto) 1.9 Baso % (Auto) 0.8 Neut # 2.1 Lymph # 1.2 [place] # 0.3 Eos # 0.1 Baso # 0.0 Abs Immat Gran (auto) 0.01 D-Dimer 601 H Turbidity < 20 Sodium 141 Potassium 4.0 Chloride 108 H Carbon Dioxide 22 Anion Gap 11 BUN 22.0 H Creatinine 1.2 GFR Calculation 44 BUN/Creatinine Ratio 18 Glucose 95 Calculated Osmolality 274 Calcium 9.2 Magnesium Total Bilirubin 0.70 Icterus Index < 2 AST 34 ALT 38 Alkaline Phosphatase 78 Troponin I < 0.012 B-Natriuretic Peptide 381 H Total Protein 8.2 Albumin 4.0 Globulin 4.2 H Albumin/Globulin Ratio 1.0 L Specimen Hemolysis < 15 01/27/17 01/27/17 01/27/17 03:00 03:00 08:31 WBC 4.1 L 3.7 L RBC 3.88 L 3.65 L Hgb 12.0 11.1 L Hct 38.0 34.2 L MCV 97.9 93.7 MCH 30.9 30.4 MCHC 31.6 32.5 RDW Std Deviation 58.1 H 52.1 H Plt Count 232 233 MPV 9.1 L 9.1 L Immature Gran % (Auto) 0.2 0.3 Neut % (Auto) 64.5 62.4 Lymph % (Auto) 26.4 31.1 [place] % (Auto) 6.7 5.2 Eos % (Auto) 1.2 0.5 Baso % (Auto) 1.0 0.5 Neut # 2.6 2.3 Lymph # 1.1 1.1 [place] # 0.3 0.2 Eos # 0.1 0.0 Baso # 0.0 0.0 Abs Immat Gran (auto) 0.01 0.01 D-Dimer Turbidity < 20 Sodium 140 Potassium 3.9 Chloride 108 H Carbon Dioxide 20 L Anion Gap 12 BUN 21.0 H Creatinine 1.2 GFR Calculation 44 BUN/Creatinine Ratio 18 Glucose 116 H Calculated Osmolality 273 Calcium 9.0 Magnesium 1.9 Total Bilirubin 0.80 Icterus Index < 2 AST 35 ALT 36 Alkaline Phosphatase 70 Troponin I 0.013 B-Natriuretic Peptide Total Protein 7.6 Albumin 3.7 Globulin 3.9 H Albumin/Globulin Ratio 0.9 L Specimen Hemolysis 23 01/27/17 08:32 WBC RBC Hgb Hct MCV MCH MCHC RDW Std Deviation Plt Count MPV Immature Gran % (Auto) Neut % (Auto) Lymph % (Auto) [place] % (Auto) Eos % (Auto) Baso % (Auto) Neut # Lymph # [place] # Eos # Baso # Abs Immat Gran (auto) D-Dimer Turbidity < 20 Sodium 140 Potassium 4.2 Chloride 109 H Carbon Dioxide 22 Anion Gap 9 BUN 20.0 H Creatinine 1.3 H D GFR Calculation 40 BUN/Creatinine Ratio 15 Glucose 109 Calculated Osmolality 273 Calcium 9.0 Magnesium 2.0 Total Bilirubin Icterus Index < 2 AST ALT Alkaline Phosphatase Troponin I 0.027 D B-Natriuretic Peptide Total Protein Albumin Globulin Albumin/Globulin Ratio Specimen Hemolysis < 15 <Lorena Adams - 01/27/17 11:51> - Imaging and Cardiology Echo: pending <Lorena Adams - 01/27/17 11:51> EKG results: image reviewed <Lorena Adams - 01/27/17 11:51> Imaging & Cardiology Narrative: Date of Exam: 01/26/17 Ordering Provider: Celso Wade MD Type of Exam(s): XR chest 1V Reason for Exam(s): shortness of air Indication: shortness of air PROCEDURE: XR chest 1V: Encounter: Initial Comparison: CT angiogram of the chest from the same date Findings: Scattered groundglass opacities in the lungs are better seen on the chest CT. No pleural effusion or pneumothorax. Heart size and mediastinal contours are within normal limits. Pulmonary vascularity is normal. Impression: Scattered pulmonary opacities better seen on CT could be due to infection, inflammation or scarring. 01/27/17 15:00 Date of Exam: 01/27/17 Ordering Provider: Lorena Adams APRN Type of Exam(s): US renal doppler Reason for Exam(s): HTN Indication: HTN PROCEDURE: US renal doppler: Encounter: Initial Comparison: None Technique: Grayscale and color Doppler sonographic imaging of both kidneys was performed with duplex evaluation of the renal arteries. Findings: Scans of the kidneys demonstrate normal morphology. The right kidney measures 9.8 cm in length. The left kidney measures 11.6 cm in length. There is no collecting system dilatation, contour deforming mass, nephrolithiasis, or abnormal perinephric fluid collection. Color Doppler imaging demonstrates normal vascularization. Resistive indices from the intrarenal arteries in the upper, middle, and lower portions of the right kidney are elevated. Resistive indices from the intrarenal arteries in the upper, middle, and lower portions of the left kidney are elevated. Arterial waveforms are normal. Impression: 1. No evidence of hemodynamically significant renal arterial stenosis. 2. Elevated resistive indices in the kidneys which are nonspecific but most commonly due to medical renal disease. Other causes include acute tubular necrosis. <Lorena Adams - 01/27/17 15:00> EKG interpretations - EKG EKG results cardiology: sinus rhythm <Lorena Adams - 01/27/17 11:51> EKG shows: bradycardia <Lorena Adams - 01/27/17 11:51> - Dysrhythmias Sinus rhythms and dysrhythmias: sinus rhythm <Lorena Adams - 01/27/17 11:51> Assessment and Plan - Attestation Attestation Narrative: 02/03/17 13:52 Recommendation After examining the patient I agree with the above assessment. I am involved in the formulation of the patient's plan of care. <Florencio Championsein - 02/03/17 13:52> - Assessment and Plan (1) Hypertensive urgency, malignant Status: Resolved (2) Pulmonary fibrosis Status: Chronic (3) Chest pain Status: Resolved <Elia Champion - 02/03/17 13:52> (1) Hypertensive urgency, malignant Status: Resolved Currently on Nitroprusside drip, with good control of BP. - Increase home Nifedipine to 60mg daily, - Increase Clonidine to 0.2mg daily. - Change home Metoprolol to Labetalol 100mg BID. - 24 urine for VMA, catecholamines, metanephrines and protein - renal artery duplex (2) Pulmonary fibrosis Status: Chronic (3) Chest pain Status: Acute Denies chest pain, states it was a pressure. Serial troponin levels are negative , EKG without ST changes. Patient has the following cardiac risk factors: HTN, HLD <Lorena Adams - 01/30/17 15:44> Hospital Course Summary Disclaimer: The visit summary below is not to be considered part of the above Progress Note. <BrandonjackyFlorencioElia - 02/03/17 13:52> The visit summary below is not to be considered part of the above Progress Note. <Lorena Adams Yeison - 01/27/17 11:51> Sepsis Assessment - Evaluation Sepsis screening result: No Definite Risk <Lorena Adams 01/27/17 11:51>
--- NOTE | 2017-01-27 12:44 | Ultrasound Report ---
Indication: HTN PROCEDURE: US renal doppler: Encounter: Initial Comparison: None Technique: Grayscale and color Doppler sonographic imaging of both kidneys was performed with duplex evaluation of the renal arteries. Findings: Scans of the kidneys demonstrate normal morphology. The right kidney measures 9.8 cm in length. The left kidney measures 11.6 cm in length. There is no collecting system dilatation, contour deforming mass, nephrolithiasis, or abnormal perinephric fluid collection. Color Doppler imaging demonstrates normal vascularization. Resistive indices from the intrarenal arteries in the upper, middle, and lower portions of the right kidney are elevated. Resistive indices from the intrarenal arteries in the upper, middle, and lower portions of the left kidney are elevated. Arterial waveforms are normal. Impression: 1. No evidence of hemodynamically significant renal arterial stenosis. 2. Elevated resistive indices in the kidneys which are nonspecific but most commonly due to medical renal disease. Other causes include acute tubular necrosis. .
--- NOTE | 2017-01-27 14:54 | Echocardiogram ---
DATE OF PROCEDURE January 27, [address] Francisco Escobedo This is a two-dimensional echo with spectral Doppler, color-flow and M-mode. It was obtained in a patient with hypertension. Left atrial dimension is increased. Left ventricle end-diastolic dimension is increased. Left ventricle wall thickness is normal. LV systolic function is normal with ejection fraction of 65%. Right atrium is normal. Right ventricle is normal. Aortic root dimension is normal. Mitral valve annulus is calcified. Mitral valve leaflets are sclerotic with no stenosis. Mild mitral regurgitation is present. Aortic valve is a trileaflet structure with no stenosis or insufficiency. Tricuspid valve shows mild tricuspid regurgitation with moderate pulmonary hypertension with estimated pulmonary artery systolic pressure of 52. Pulmonary valve shows mild pulmonary insufficiency. There is no pericardial effusion. IMPRESSION 1. Left atrial dilation. 2. Mild left ventricular dilation. 3. Normal LV systolic function with ejection fraction of 65%. 4. Mitral annulus calcification with mitral sclerosis and mild mitral regurgitation. 5. Mild tricuspid regurgitation with moderate pulmonary hypertension with estimated pulmonary artery systolic pressure of 52. 6. Mild pulmonary insufficiency. MTDD
[2017-01-27] MEDS: PRAMIPEXOLE 0.5 MG TABLET PO SCH (20:57)
[2017-01-27] MEDS: LABETALOL 100 MG TABLET PO SCH (20:58)
[2017-01-27] MEDS: SERTRALINE 25 MG TABLET PO SCH (20:59)
[2017-01-28] MEDS: CEFTRIAXONE 1 G in NS 100 ML IV SCH ×2 (00:42→23:17)
[2017-01-28] MEDS: NS FLUSH BAG 500ml IV PRN (00:49)
[2017-01-28] MEDS: LEVOTHYROXINE 100 MCG TABLET PO SCH (05:30)
[2017-01-28] MEDS: HYDRALAZINE 25 MG TABLET PO SCH ×3 (09:11→17:20)
[2017-01-28] MEDS: ASPIRIN *EC* 81 MG TABLET PO SCH (09:11)
[2017-01-28] MEDS: LABETALOL 100 MG TABLET PO SCH ×2 (09:11→21:06)
[2017-01-28] MEDS: HEPARIN SUB-Q 5,000 UNITS/0.5 ML INJECTION SQ SCH ×3 (09:11→23:18)
[2017-01-28] MEDS: MAGNESIUM OXIDE 400 MG TABLET PO SCH (09:11)
[2017-01-28] MEDS: SALINE FLUSH 10ml SYRINGE IVF PRN (09:12)
[2017-01-28] MEDS: PANTOPRAZOLE 40 MG TABLET PO SCH ×2 (09:12→21:05)
[2017-01-28] MEDS ORDERED: MINOXIDIL 2.5 MG TABLET PO SCH (09:30)
--- NOTE | 2017-01-28 10:52 | Progress Note ---
Subjective: Pt states is feeling much better, SBP is at 185 now, DBP is normal. Off Nipride drip, saturating well on RA, oriented x 3, looks pretty comfortable. Objective Vital signs: Temperature 97.4 F 01/28/17 08:00 Pulse Rate 63 01/28/17 10:00 Respiratory Rate 28 H 01/28/17 10:00 Blood Pressure 186/79 H 01/28/17 10:00 Pulse Oximetry 95 01/28/17 10:00 Rhythm: Normal Sinus Rhythm Height/Weight/BMI: Height 5 ft 4 in Weight 114.6 kg Body Mass Index 43.3 - Constitutional Present: no acute distress - Routine HEENT Exam Head: Present: normocephalic, atraumatic Eye: Present: EOMI, PERRL ENT: Present: mucous membranes moist - Routine Respiratory Exam Present: CTA bilaterally - Routine Cardiovascular Exam Present: RRR, S1, S2 - Routine Extremities Exam Absent: cyanosis, clubbing, edema - Routine Neurological Exam Present: alert, oriented X3, CN II-XII intact - Routine Psychiatric Exam Present: normal affect, cooperative, good insight, good judgment Results - Labs CBC & Chem 7: 01/28/17 04:24 01/28/17 04:24 Microbiology Results: Microbiology 01/27/17 23:13 Urine, Voided (Cc/notcc) Urine Culture - Preliminary Culture Initiated - Results Pending Assessment and Plan (1) Hypertensive urgency, malignant Current visit: Yes Status: Acute 01/27/17 00:34 patient has significantly elevated blood pressure with mild headache and brief chest pain with dyspnea. no evidence of chf on examination or by radioautographic process. patient on b krysta, aldactone, ? catapress, ? hydralazine. need to complete med rec. for now with history of allergyto verapamil cannot do cardene gtt. with gallo with b krysta reported cannot do esmolol drip. Would not recommend NTG gtt yet. Thus ED started nipride. will use this overnight realizing that this cannot be used over ?24 hours or less ( pharmacy can remind) as risk of CN buildup. Not much room to go on b krysta. Not clear why the increased blood pressure. reassess in the am. Obviously monitor on tele with neuro checks. (2) Rheumatoid arthritis Current visit: Yes Status: Chronic 01/27/17 00:37 chronic. on remicaid now. MTX toxicity pulmonary. reasonably stable. doubt has any impact on HTN issues tonight (3) Pulmonary fibrosis Current visit: Yes Status: Chronic 01/27/17 00:38 relating to MTX toxictiy. no oxygen needs. pulm exam relatively benign. to be aware of (4) GERD (gastroesophageal reflux disease) Current visit: Yes Status: Chronic 01/27/17 00:38 continue PPI (5) RLS (restless legs syndrome) Current visit: Yes Status: Chronic 01/27/17 00:39 continue mirapex (6) Hypothyroid Current visit: Yes Status: Chronic 01/27/17 00:39 continue synthroid DVT Prophylaxis: SQ Heparin GI Prophylaxis: other Resuscitation Status: Full Code Assessment and Plan: This is a 76 YO female that came to us with uncontrolled HTN and required Nipride drip and ICU care, she has stabilized and her BP is much better now, having at this time residual pure systolic HTN. A/P 1) Uncontrolled HTN, possibly associated with CHF and moderate pulmonary congestion causing her SOB - Improved. - No YAIMA - Workup for Pheochromocytoma is ongoing. - Continue Clonidine, BB, Hydralazine. 2) Atypical CP, could be related to RA or Fibromyalgia but also pt may have CAD - TnI negative. - May need a stress test as outpatient to risk stratify. 3) Pulmonary infiltrates - Could be related to Rheumatoid lung, due fibrosis/MTX or edema - Since pt is stable will recheck CXR later today - if gone then pulmonary edema could be the explanation. Prevention Lovenox PPI. - Time spent with patient 25 - 35 minutes Sepsis Assessment - Evaluation Sepsis screening result: No Definite Risk Hospital Course Summary Disclaimer: The visit summary below is not to be considered part of the above Progress Note.
[2017-01-28] MEDS: SERTRALINE 25 MG TABLET PO SCH (21:05)
[2017-01-28] MEDS: PRAMIPEXOLE 0.5 MG TABLET PO SCH (21:05)
[2017-01-29] MEDS: CEFTRIAXONE 1 G in NS 100 ML IV SCH (00:15)
[2017-01-29] MEDS: LEVOTHYROXINE 100 MCG TABLET PO SCH (06:21)
[2017-01-29] MEDS: HEPARIN SUB-Q 5,000 UNITS/0.5 ML INJECTION SQ SCH ×2 (09:03→17:03)
[2017-01-29] MEDS: MAGNESIUM OXIDE 400 MG TABLET PO SCH (09:03)
[2017-01-29] MEDS: LABETALOL 100 MG TABLET PO SCH ×2 (09:03→20:34)
[2017-01-29] MEDS: HYDRALAZINE 25 MG TABLET PO SCH ×3 (09:03→17:03)
[2017-01-29] MEDS: ASPIRIN *EC* 81 MG TABLET PO SCH (09:03)
[2017-01-29] MEDS: PANTOPRAZOLE 40 MG TABLET PO SCH ×2 (09:03→20:33)
--- NOTE | 2017-01-29 11:36 | XRay Report ---
INDICATION: F/U infiltrates seen in admision CXR PROCEDURE: CHEST 2-VIEWS UPRIGHT (PA & LAT) Encounter: Initial COMPARISON: January 26, 2017 FINDINGS: Increased linear markings in the left mid to lower lung field. Most of this probably represents scarring. No consolidative lobar pneumonia. No pleural effusion or pneumothorax. Heart size and mediastinal contours are within normal limits. Pulmonary vascularity is normal. Old treated lumbar compression fractures. Impression: Areas of linear scarring in the left base without focal pneumonia or overt congestive failure. .
--- NOTE | 2017-01-29 12:32 | Progress Note ---
Subjective: Mrs. Sánchez was up in a chair when seen. She complained of pain in her low back which increases with inspiration. She complained of mild exertional dyspnea and sensation of congestion in her chest and of the need to cough although she can't cough. She denied chest pain, nausea, or fevers. She reports that she has minor shakiness in her hands and that this is new. She complains of significant fatigue. She denied dysuria or difficulty voiding. Objective Vital signs: Temperature 98.0 F 01/29/17 08:00 Pulse Rate 56 L 01/29/17 12:15 Respiratory Rate 28 H 01/29/17 12:00 Blood Pressure 144/67 H 01/29/17 12:00 Pulse Oximetry 96 01/29/17 12:00 EXAM General-NAD, alert HEENT-PERR, EOMI, conjunctiva clear, sclera anicteric, oropharynx clear, neck supple Lungs-respirations nonlabored, good airflow, breath sounds clear Cardiac-regular rhythm, S1-S2 Abd-soft, nontender, bowel sounds present/active Ext-+1 edema bilateral lower extremities, rheumatoid nodules at the DIPs bilaterally, no ulnar deviation Neuro-MAEW Psych-calm, cooperative, pleasant - Rhythm: Normal Sinus Rhythm Height/Weight/BMI: Height 1.63 m Weight 116 kg Body Mass Index 43.3 Results - Labs CBC & Chem 7: 01/29/17 04:08 01/29/17 04:08 Labs: Magnesium 2.1 Microbiology Results: Microbiology 01/27/17 23:13 Urine, Voided (Cc/notcc) Urine Culture - Preliminary Escherichia coli - Imaging and Cardiology Chest x-ray Status: image reviewed by me (LESTER) Assessment and Plan (1) Hypertensive urgency, malignant Current visit: Yes Status: Acute (2) Rheumatoid arthritis Current visit: Yes Status: Chronic (3) GERD (gastroesophageal reflux disease) Current visit: Yes Status: Chronic (4) RLS (restless legs syndrome) Current visit: Yes Status: Chronic (5) Hypothyroid Current visit: Yes Status: Chronic DVT Prophylaxis: SQ Heparin GI Prophylaxis: Protonix Resuscitation Status: Full Code Assessment and Plan: Assessment: Malignant hypertension Chest pain Rheumatoid arthritis Escherichia coli UTI CKD, stage III Fibromyalgia GERD Restless leg syndrome Hypothyroidism, TSH 2.04 on 01/28/17 Pulmonary hypertension, PAP 52 Neutropenia, normocytic anemia Plan: Patient remains off nipride drip; has been converted from metoprolol 100 twice a day to labetalol 100 twice a day, clonidine increased from 0.1 to 0.2 twice a day, and nifedipine ER increased from 30 to 60 daily. Remains on hydralazine at 25 mg 3 times daily. Was previously on spironolactone and diuretics have not been resumed. Blood pressures variable with systolics ranging from 124-165 in the past 6 hours. Stable to transfer out of the ICU and increase activities. May require further adjustments in dosing. Resume spironolactone at this time. 24 hour urine for catecholamines/metanephrine pending. Renal sonogram with Doppler without evidence of renal artery stenosis but consistent with chronic kidney disease. No indication of pulmonary edema or pulmonary fibrosis on repeat chest x-ray yesterday. Urine culture with > 100,000 colonies Escherichia coli, sensitivities pending, continue ceftriaxone at present. Minimal elevation in troponin-EKG without acute changes. Chest pain likely muscular. Echocardiogram preserved ejection fraction of 65% and moderate pulmonary hypertension. Mild MR. Continue home dose levothyroxin and home regimen for restless legs/GERD. [place] 10 resumed when necessary for arthralgias/myalgias. Supplemental history provided by nursing, chest x-ray/EKG reviewed by myself, echocardiogram report reviewed, laboratory data reviewed, additional studies ordered. Sepsis Assessment - Evaluation Sepsis screening result: No Definite Risk Hospital Course Summary Disclaimer: The visit summary below is not to be considered part of the above Progress Note. Hospital Course: 01/28/17 This is a 76 YO female that came to us with uncontrolled HTN and required Nipride drip and ICU care, she has stabilized and her BP is much better now, having at this time residual pure systolic HTN. A/P 1) Uncontrolled HTN, possibly associated with CHF and moderate pulmonary congestion causing her SOB - Improved. - No YAIMA - Workup for Pheochromocytoma is ongoing. - Continue Clonidine, BB, Hydralazine. 2) Atypical CP, could be related to RA or Fibromyalgia but also pt may have CAD - TnI negative. - May need a stress test as outpatient to risk stratify. 3) Pulmonary infiltrates - Could be related to Rheumatoid lung, due fibrosis/MTX or edema - Since pt is stable will recheck CXR later today - if gone then pulmonary edema could be the explanation. 01/29/17 Patient remains off nipride drip; has been converted from metoprolol 100 twice a day to labetalol 100 twice a day, clonidine increased from 0.1 to 0.2 twice a day, and nifedipine ER increased from 30 to 60 daily. Remains on hydralazine at 25 mg 3 times daily. Was previously on spironolactone and diuretics have not been resumed. Blood pressures variable with systolics ranging from 124-165 in the past 6 hours. Stable to transfer out of the ICU and increase activities. May require further adjustments in dosing. Resume spironolactone. 24 hour urine for catecholamines/metanephrine pending. Renal sonogram with Doppler without evidence of renal artery stenosis but consistent with chronic kidney disease. No indication of pulmonary edema or pulmonary fibrosis on repeat chest x-ray yesterday. Urine culture with > 100,000 colonies Escherichia coli, sensitivities pending, continue ceftriaxone at present. Minimal elevation in troponin-EKG without acute changes. Chest pain likely muscular. Echocardiogram preserved ejection fraction of 65% and moderate pulmonary hypertension. Mild MR. Continue home dose levothyroxin and home regimen for restless legs/GERD. [place] 10 resumed when necessary for arthralgias/myalgias.
[2017-01-29] MEDS: HYDROCODONE/APAP 10 MG/325 MG TABLET PO PRN ×2 (12:47→23:10)
[2017-01-29] MEDS: SPIRONOLACTONE 25 MG TABLET PO SCH (13:43)
[2017-01-29] MEDS: CETIRIZINE 10 MG TABLET PO SCH (15:18)
[2017-01-29] MEDS: PRAMIPEXOLE 0.5 MG TABLET PO SCH (20:33)
[2017-01-29] MEDS: SERTRALINE 25 MG TABLET PO SCH (20:38)
[2017-01-30] MEDS: NS FLUSH BAG 500ml IV PRN (00:17)
[2017-01-30] MEDS: SALINE FLUSH 10ml SYRINGE IVF PRN ×2 (00:17→08:43)
[2017-01-30] MEDS: CEFTRIAXONE 1 G in NS 100 ML IV SCH ×2 (00:18→23:50)
[2017-01-30] MEDS: HEPARIN SUB-Q 5,000 UNITS/0.5 ML INJECTION SQ SCH ×4 (00:18→23:50)
[2017-01-30] MEDS: LEVOTHYROXINE 100 MCG TABLET PO SCH (05:42)
[2017-01-30] MEDS: MAGNESIUM OXIDE 400 MG TABLET PO SCH (08:44)
[2017-01-30] MEDS: CETIRIZINE 10 MG TABLET PO SCH (08:44)
[2017-01-30] MEDS: SPIRONOLACTONE 25 MG TABLET PO SCH (08:44)
[2017-01-30] MEDS: ASPIRIN *EC* 81 MG TABLET PO SCH (08:44)
[2017-01-30] MEDS: LABETALOL 100 MG TABLET PO SCH ×2 (08:44→21:40)
[2017-01-30] MEDS: HYDRALAZINE 25 MG TABLET PO SCH ×3 (08:44→18:17)
[2017-01-30] MEDS: PANTOPRAZOLE 40 MG TABLET PO SCH ×2 (08:44→21:38)
--- NOTE | 2017-01-30 14:40 | Progress Note ---
Subjective: Pt states she is feeling better, her BP is trending down on oral medications. Workup was done and results are pending. Objective Vital signs: Temperature 96.8 F 01/30/17 12:32 Pulse Rate 57 L 01/30/17 12:32 Respiratory Rate 20 01/30/17 12:32 Blood Pressure 135/60 01/30/17 12:32 Pulse Oximetry 94 01/30/17 12:32 Rhythm: Normal Sinus Rhythm Height/Weight/BMI: Height 5 ft 4 in Weight 114.6 kg Body Mass Index 43.3 - Constitutional Present: no acute distress - Routine HEENT Exam Head: Present: normocephalic, atraumatic Eye: Present: EOMI, PERRL - Routine Cardiovascular Exam Present: RRR, S1, S2 - Routine Abdominal Exam Present: soft, non distended, non tender - Routine Extremities Exam Absent: cyanosis, clubbing, edema - Routine Neurological Exam Present: alert, oriented X3 - Routine Psychiatric Exam Present: normal affect, normal thought process, cooperative, good insight, good judgment Results - Labs CBC & Chem 7: 01/30/17 04:26 01/30/17 04:26 Microbiology Results: Microbiology 01/27/17 23:13 Urine, Voided (Cc/notcc) Urine Culture - Final Escherichia coli Assessment and Plan (1) Hypertensive urgency, malignant Current visit: Yes Status: Resolved 01/27/17 00:34 patient has significantly elevated blood pressure with mild headache and brief chest pain with dyspnea. no evidence of chf on examination or by radioautographic process. patient on b krysta, aldactone, ? catapress, ? hydralazine. need to complete med rec. for now with history of allergyto verapamil cannot do cardene gtt. with gallo with b krysta reported cannot do esmolol drip. Would not recommend NTG gtt yet. Thus ED started nipride. will use this overnight realizing that this cannot be used over ?24 hours or less ( pharmacy can remind) as risk of CN buildup. Not much room to go on b krysta. Not clear why the increased blood pressure. reassess in the am. Obviously monitor on tele with neuro checks. (2) Rheumatoid arthritis Current visit: Yes Status: Chronic 01/27/17 00:37 chronic. on remicaid now. MTX toxicity pulmonary. reasonably stable. doubt has any impact on HTN issues tonight (3) GERD (gastroesophageal reflux disease) Current visit: Yes Status: Chronic 01/27/17 00:38 continue PPI (4) RLS (restless legs syndrome) Current visit: Yes Status: Chronic 01/27/17 00:39 continue mirapex (5) Hypothyroid Current visit: Yes Status: Chronic 01/27/17 00:39 continue synthroid DVT Prophylaxis: SCD's GI Prophylaxis: Protonix Resuscitation Status: Full Code Assessment and Plan: SUMMARY - This is a 76 YO female that came to us with uncontrolled HTN (HTN emergency) and required Nipride drip and ICU care, as she appeared to have pulmonary edema due to her severe HTN; she has stabilized and her BP is better. 2-D echo (01/27) Dr Champion (Staff Fireperson) '................................... IMPRESSION 1. Left atrial dilation. 2. Mild left ventricular dilation. 3. Normal LV systolic function with ejection fraction of 65%. 4. Mitral annulus calcification with mitral sclerosis and mild mitral regurgitation. 5. Mild tricuspid regurgitation with moderate pulmonary hypertension with estimated pulmonary artery systolic pressure of 52. 6. Mild pulmonary insufficiency. .............................................." DIAGNOSIS 1) Uncontrolled HTN, associated with CHF and moderate pulmonary congestion causing her SOB, much improved at this time. W/U for Pheochromocytoma done - results pending. - No YAIMA - Workup for Pheochromocytoma PENDING. - Continue Clonidine, BB, Hydralazine. a) Pulmonary infiltrates - Could be related to Rheumatoid lung, due fibrosis/MTX or edema - X ray repeated on 01/28 - suggest chronic process - scar b) Pulmonary hypertension. - Due to ? No hypoxemia on routine VS - Check overnight oxymetry. 2) Atypical CP, could be related to RA or Fibromyalgia but also pt may have CAD - May need a stress test as outpatient to risk stratify. - Schedule for outpatient stress test with Dr Champion. 3) Escherichia coli UTI - On IV Rocephin. 4) CKD, stage III (By history). - Creatinine is down today to 1.4 - May consider checking a iPTH to establish chronicity of renal disease. 5) Fibromyalgia, RLS. 6) Hypothyroidism - well controlled at present. 7) Anemia, most likely anemia of inflammation - pt has RA and is receiving Remicade. - WBC a bit low, may follow up as outpatient. Prevention PUD - PPI DVT - SCD's - Time spent with patient 25 - 35 minutes Sepsis Assessment - Evaluation Sepsis screening result: Sepsis Risk Hospital Course Summary Disclaimer: The visit summary below is not to be considered part of the above Progress Note. Hospital Course: 01/28/17 This is a 76 YO female that came to us with uncontrolled HTN and required Nipride drip and ICU care, she has stabilized and her BP is much better now, having at this time residual pure systolic HTN. A/P 1) Uncontrolled HTN, possibly associated with CHF and moderate pulmonary congestion causing her SOB - Improved. - No YAIMA - Workup for Pheochromocytoma is ongoing. - Continue Clonidine, BB, Hydralazine. 2) Atypical CP, could be related to RA or Fibromyalgia but also pt may have CAD - TnI negative. - May need a stress test as outpatient to risk stratify. 3) Pulmonary infiltrates - Could be related to Rheumatoid lung, due fibrosis/MTX or edema - Since pt is stable will recheck CXR later today - if gone then pulmonary edema could be the explanation. 01/29/17 Patient remains off nipride drip; has been converted from metoprolol 100 twice a day to labetalol 100 twice a day, clonidine increased from 0.1 to 0.2 twice a day, and nifedipine ER increased from 30 to 60 daily. Remains on hydralazine at 25 mg 3 times daily. Was previously on spironolactone and diuretics have not been resumed. Blood pressures variable with systolics ranging from 124-165 in the past 6 hours. Stable to transfer out of the ICU and increase activities. May require further adjustments in dosing. Resume spironolactone. 24 hour urine for catecholamines/metanephrine pending. Renal sonogram with Doppler without evidence of renal artery stenosis but consistent with chronic kidney disease. No indication of pulmonary edema or pulmonary fibrosis on repeat chest x-ray yesterday. Urine culture with > 100,000 colonies Escherichia coli, sensitivities pending, continue ceftriaxone at present. Minimal elevation in troponin-EKG without acute changes. Chest pain likely muscular. Echocardiogram preserved ejection fraction of 65% and moderate pulmonary hypertension. Mild MR. Continue home dose levothyroxin and home regimen for restless legs/GERD. [place] 10 resumed when necessary for arthralgias/myalgias.
--- NOTE | 2017-01-30 15:46 | Cardiology Progress Note ---
Subjective Principal diagnosis: left chest pain, HTN <Lorena Adams - 01/30/17 15:46> Interval history: Neetu is seen in follow up for HTN urgency and left chest wall pain. She is sitting up in the recliner with her at the bedside. She asks about future plans for stress test as an outpatient. She denies chest pain or cardiac complaints. <Lorena Adams - 01/30/17 18:11> Exam Vital signs: Temperature 96.7 F L 01/31/17 11:56 Pulse Rate 57 L 01/31/17 11:56 Respiratory Rate 12 01/31/17 11:56 Blood Pressure 130/65 01/31/17 11:56 Pulse Oximetry 93 01/31/17 11:56 <JayceeElia - 02/03/17 13:56> Temperature 96.8 F 01/30/17 12:32 Pulse Rate 57 L 01/30/17 12:32 Respiratory Rate 20 01/30/17 12:32 Blood Pressure 135/60 01/30/17 12:32 Pulse Oximetry 94 01/30/17 12:32 <Lorena Adams - 01/30/17 15:46> - Constitutional no acute distress, obese, cooperative <Lorena Adams 01/30/17 18:11> - Routine HEENT Exam Head: Present: normocephalic <Lorena Adams 01/30/17 18:11> ENT: Present: mucous membranes moist <Lorena Adams 01/30/17 18:11> - Routine Neck Exam Absent: JVD, carotid bruit <Lorena Adams 01/30/17 18:11> - Routine Chest/Breast/Axilla Exam Chest wall: Absent: tenderness <Lorena Adams 01/30/17 18:11> - Routine Respiratory Exam Present: CTA bilaterally. Absent: rales, wheezes <Lorena Adams 01/30/17 18:11> - Routine Cardiovascular Exam Present: RRR, no murmur. Absent: JVD <Lorena Adams 01/30/17 18:11> - Routine Abdominal Exam Present: soft, normoactive bowel sounds <Lorena Adams 01/30/17 18:11> - Routine Extremities Exam Present: no edema <Lorena Adams - 01/30/17 18:11> - Routine Skin Exam Present: intact, dry, warm <Lorena Adams - 01/30/17 18:11> - Routine Neurological Exam Present: alert, oriented X3 <Lorena Adams - 01/30/17 18:11> - Routine Psychiatric Exam Present: normal affect, normal thought process <Lorena Adams - 01/30/17 18: 11> - Additional findings Additional findings: Laboratory Results - last 48 hr 01/27/17 01/28/17 01/29/17 23:13 04:24 04:08 WBC 3.7 L RBC 3.33 L Hgb 10.0 L Hct 31.4 L MCV 94.3 MCH 30.0 MCHC 31.8 RDW Std Deviation 50.7 H Plt Count 217 MPV 9.4 Immature Gran % (Auto) Neut % (Auto) Lymph % (Auto) Blount % (Auto) Eos % (Auto) Baso % (Auto) Neut # Lymph # Blount # Eos # Baso # Abs Immat Gran (auto) Turbidity Sodium Potassium Chloride Carbon Dioxide Anion Gap BUN Creatinine GFR Calculation BUN/Creatinine Ratio Glucose Calculated Osmolality Calcium Magnesium Icterus Index 25-OH Vitamin D Total 32 Specimen Hemolysis Urine Protein 13 Urine Collection Time 24 Urine Total Volume 1.150 Ur Total Protein 24 Hr 149 01/29/17 01/30/17 01/30/17 04:08 04:26 04:26 WBC 3.4 L RBC 3.37 L Hgb 10.1 L Hct 31.6 L MCV 93.8 MCH 30.0 MCHC 32.0 RDW Std Deviation 50.2 Plt Count 233 MPV 10.1 Immature Gran % (Auto) 0.3 Neut % (Auto) 57.5 Lymph % (Auto) 29.9 Blount % (Auto) 7.3 Eos % (Auto) 4.4 H Baso % (Auto) 0.6 Neut # 2.0 Lymph # 1.0 Blount # 0.3 Eos # 0.2 Baso # 0.0 Abs Immat Gran (auto) 0.01 Turbidity < 20 < 20 Sodium 137 140 Potassium 4.2 4.4 Chloride 105 106 Carbon Dioxide 24 25 Anion Gap 8 9 BUN 26.0 H 28.0 H Creatinine 1.4 H D 1.4 H GFR Calculation 37 37 BUN/Creatinine Ratio 19 20 Glucose 104 91 Calculated Osmolality 269 275 Calcium 8.9 8.9 Magnesium 2.1 Icterus Index < 2 < 2 25-OH Vitamin D Total Specimen Hemolysis < 15 < 15 Urine Protein Urine Collection Time Urine Total Volume Ur Total Protein 24 Hr Acetaminophen/Hydrocodone Bitart ([place] 10/325) 1 tab PO Q4H PRN PRN Reason: Pain Last Admin: 01/29/17 23:10 Dose: 1 tab Aspirin (Ecotrin) 81 mg PO DAILY [facility] Last Admin: 01/30/17 08:44 Dose: 81 mg Cetirizine HCl (Zyrtec) 10 mg PO DAILY [facility] Last Admin: 01/30/17 08:44 Dose: 10 mg Clonidine HCl (Catapres) 0.2 mg PO BID [facility] Last Admin: 01/30/17 08:44 Dose: 0.2 mg Heparin Sodium (Porcine) (Heparin Sq) 5,000 units SQ Q8H [facility] Last Admin: 01/30/17 08:44 Dose: 5,000 units Hydralazine HCl (Apresoline) 25 mg PO TIDWM [facility] Last Admin: 01/30/17 12:34 Dose: 25 mg Ceftriaxone Sodium 1 g/ Sodium (Chloride) 100 mls @ 200 mls/hr IV Q24H [facility] Last Infusion: 01/30/17 00:57 Dose: Infused Labetalol HCl (Normodyne) 100 mg PO BID [facility] Last Admin: 01/30/17 08:44 Dose: 100 mg Levothyroxine Sodium (Synthroid) 100 mcg PO ACB [facility] Last Admin: 01/30/17 05:42 Dose: 100 mcg Lorazepam (Ativan Inj) 0.5 mg IVP Q6H PRN Last Admin: 01/27/17 02:58 Dose: 0.5 mg Magnesium Oxide (Magox) 400 mg PO DAILY [facility] Last Admin: 01/30/17 08:44 Dose: 400 mg Morphine Sulfate (Morphine Sulfate Inj) 1 - 2 mg IVP Q2H PRN PRN Reason: Pain Nifedipine (Procardia Xl) 60 mg PO DAILY [facility] Last Admin: 01/30/17 08:43 Dose: 60 mg Ondansetron HCl (Zofran) 4 mg IVP Q6H PRN PRN Reason: Nausea &/or vomiting Last Admin: 01/27/17 06:15 Dose: 4 mg Pantoprazole Sodium (Protonix Tab) 40 mg PO BID [facility] Last Admin: 01/30/17 08:44 Dose: 40 mg Pramipexole Dihydrochloride (Mirapex) 0.5 mg PO HS [facility] Last Admin: 01/29/17 20:33 Dose: 0.5 mg Prednisone (Deltasone) 2 mg PO WB [facility] Last Admin: 01/30/17 08:44 Dose: 2 mg Sertraline HCl (Zoloft) 25 mg PO HS [facility] Last Admin: 01/29/17 20:38 Dose: 25 mg Sodium Chloride (Iv Flush) 10 - 80 ml IVF PRN PRN PRN Reason: Flushing Last Admin: 01/30/17 08:43 Dose: 10 ml Sodium Chloride (Normal Saline) 500 ml IV PRN PRN Last Admin: 01/30/17 00:17 Dose: 500 ml Spironolactone (Aldactone) 25 mg PO DAILY [facility] Last Admin: 01/30/17 08:44 Dose: 25 mg Date of Exam: 01/27/17 Type of Exam(s): US echo doppler complete DATE OF PROCEDURE January 27, [address] Francisco Escobedo This is a two-dimensional echo with spectral Doppler, color-flow and M-mode. It was obtained in a patient with hypertension. Left atrial dimension is increased. Left ventricle end-diastolic dimension is increased. Left ventricle wall thickness is normal. LV systolic function is normal with ejection fraction of 65%. Right atrium is normal. Right ventricle is normal. Aortic root dimension is normal. Mitral valve annulus is calcified. Mitral valve leaflets are sclerotic with no stenosis. Mild mitral regurgitation is present. Aortic valve is a trileaflet structure with no stenosis or insufficiency. Tricuspid valve shows mild tricuspid regurgitation with moderate pulmonary hypertension with estimated pulmonary artery systolic pressure of 52. Pulmonary valve shows mild pulmonary insufficiency. There is no pericardial effusion. IMPRESSION 1. Left atrial dilation. 2. Mild left ventricular dilation. 3. Normal LV systolic function with ejection fraction of 65%. 4. Mitral annulus calcification with mitral sclerosis and mild mitral regurgitation. 5. Mild tricuspid regurgitation with moderate pulmonary hypertension with estimated pulmonary artery systolic pressure of 52. 6. Mild pulmonary insufficiency. <Lorena Adams - 01/31/17 10:59> Assessment and Plan - Assessment and Plan (1) Hypertensive urgency, malignant Status: Resolved (2) Pulmonary fibrosis Status: Chronic (3) Chest pain Status: Resolved <Elia Champion - 02/03/17 13:56> (1) Hypertensive urgency, malignant (2) Pulmonary fibrosis (3) Chest pain <Lorena Adams - 01/31/17 11:01> - Attestation Attestation Narrative: 02/03/17 13:56 Recommendation After examining the patient I agree with the above assessment. I am involved in the formulation of the patient's plan of care. <Kalyn Championin - 02/03/17 13:56> Sepsis Assessment - Evaluation Sepsis screening result: No Definite Risk <Lorena Adams - 01/30/17 15:46> Hospital Course Summary Disclaimer: The visit summary below is not to be considered part of the above Progress Note. <Elia Champion - 02/03/17 13:56> The visit summary below is not to be considered part of the above Progress Note. <Lorena Adams - 01/30/17 15:46> Hospital Course: 01/27/17 Cardiology Denies chest pain, states it was a pressure. Serial troponin levels are negative , EKG without ST changes. Patient has the following cardiac risk factors: HTN, HLD. Hypertensive urgency, malignant: Currently on Nitroprusside drip, with good control of BP. - Increase home Nifedipine to 60mg daily, - Increase Clonidine to 0.2mg daily. - Change home Metoprolol to Labetalol 100mg BID. - 24 urine for VMA, catecholamines, metanephrines and protein - renal artery duplex Thank you for allowing us to participate in the care of this patient. 01/28/17 This is a 76 YO female that came to us with uncontrolled HTN and required Nipride drip and ICU care, she has stabilized and her BP is much better now, having at this time residual pure systolic HTN. A/P 1) Uncontrolled HTN, possibly associated with CHF and moderate pulmonary congestion causing her SOB - Improved. - No YAIMA - Workup for Pheochromocytoma is ongoing. - Continue Clonidine, BB, Hydralazine. 2) Atypical CP, could be related to RA or Fibromyalgia but also pt may have CAD - TnI negative. - May need a stress test as outpatient to risk stratify. 3) Pulmonary infiltrates - Could be related to Rheumatoid lung, due fibrosis/MTX or edema - Since pt is stable will recheck CXR later today - if gone then pulmonary edema could be the explanation. 01/29/17 Patient remains off nipride drip; has been converted from metoprolol 100 twice a day to labetalol 100 twice a day, clonidine increased from 0.1 to 0.2 twice a day, and nifedipine ER increased from 30 to 60 daily. Remains on hydralazine at 25 mg 3 times daily. Was previously on spironolactone and diuretics have not been resumed. Blood pressures variable with systolics ranging from 124-165 in the past 6 hours. Stable to transfer out of the ICU and increase activities. May require further adjustments in dosing. Resume spironolactone. 24 hour urine for catecholamines/metanephrine pending. Renal sonogram with Doppler without evidence of renal artery stenosis but consistent with chronic kidney disease. No indication of pulmonary edema or pulmonary fibrosis on repeat chest x-ray yesterday. Urine culture with > 100,000 colonies Escherichia coli, sensitivities pending, continue ceftriaxone at present. Minimal elevation in troponin-EKG without acute changes. Chest pain likely muscular. Echocardiogram preserved ejection fraction of 65% and moderate pulmonary hypertension. Mild MR. Continue home dose levothyroxin and home regimen for restless legs/GERD. [place] 10 resumed when necessary for arthralgias/myalgias. 01/30/17 18:07 Increase Nifedipine to 90mg daily, additional 30mg given today. Okay with discharge whenever okay with Dr. Escobedo. Will plan follow up in 2 weeks and stress test as an outpatient to follow. <Lorena Adams - 01/31/17 11:03>
[2017-01-30] MEDS: PRAMIPEXOLE 0.5 MG TABLET PO SCH (21:38)
[2017-01-30] MEDS: SERTRALINE 25 MG TABLET PO SCH (21:38)
[2017-01-30] MEDS: HYDROCODONE/APAP 10 MG/325 MG TABLET PO PRN (23:50)
[2017-01-31] MEDS: LEVOTHYROXINE 100 MCG TABLET PO SCH (06:44)
[2017-01-31] MEDS: HYDROCODONE/APAP 10 MG/325 MG TABLET PO PRN (06:44)
[2017-01-31 07:46] VITALS: O2SAT 93
[2017-01-31] MEDS: ASPIRIN *EC* 81 MG TABLET PO SCH (09:28)
[2017-01-31] MEDS: PANTOPRAZOLE 40 MG TABLET PO SCH (09:30)
[2017-01-31] MEDS: MAGNESIUM OXIDE 400 MG TABLET PO SCH (09:30)
[2017-01-31] MEDS: LABETALOL 100 MG TABLET PO SCH (09:33)
[2017-01-31] MEDS: HEPARIN SUB-Q 5,000 UNITS/0.5 ML INJECTION SQ SCH (09:34)
[2017-01-31] MEDS: SPIRONOLACTONE 25 MG TABLET PO SCH (09:35)
[2017-01-31] MEDS: HYDRALAZINE 25 MG TABLET PO SCH ×2 (09:35→12:16)
[2017-01-31] MEDS: CETIRIZINE 10 MG TABLET PO SCH (09:37)
[2017-01-31 11:57] VITALS: BP 130/65; PULSE 57; RESP 12; TEMP 96.7
--- NOTE | 2017-01-31 12:01 | Discharge Instructions ---
Discharge Plan - [place] Rec/Dispo [place] Instructions: Heart Failure (GEN) Prescriptions: New Cetirizine [Zyrtec] 10 mg PO DAILY tablet Hydralazine [Apresoline] 25 mg PO TIDWM 30 Days #90 tab Labetalol [Normodyne] 100 mg PO BID 30 Days #60 tab CloNIDine [Catapres] 0.2 mg PO BID 30 Days #60 tab NIFEdipine XL [Procardia Xl] 90 mg PO DAILY 30 Days #30 tab Continue Levothyroxine Sodium [Synthroid] 100 mcg PO DAILY #0 Aspirin [Aspir 81] 81 mg PO DAILY #0 Spironolactone [Aldactone] 25 mg PO DAILY #2 Cholecalciferol (Vitamin D3) [Vitamin D3] 4,000 mg PO DAILY Sertraline [Zoloft] 25 mg PO DAILY Pramipexole Di-HCl [Mirapex] 0.5 mg PO DAILY #0 Infliximab [Remicade] 100 mg IV .Q6W Magnesium Oxide [Magox 400] 400 mg PO DAILY prednisone 1 mg tablet 2 mg PO DAILY tab [place] 10 mg-acetaminophen 325 mg tablet 1 tab PO PRN PRN PRN Reason: Pain hydralazine 25 mg tablet 25 mg PO TID tab Discontinued Nitrofurantoin Macrocrystal [Nitrofurantoin] 100 mg PO HS Metoprolol Succinate [Toprol Xl] 100 mg PO BID #0 clonidine HCl 0.1 mg tablet 0.1 mg PO BID nifedipine ER 30 mg tablet,extended release 30 mg PO DAILY tab No Action Systane Eye Drops 1 drop OP PRN Pantoprazole Sodium [Protonix] 40 mg PO BID #0 Zyrtec (Cetirizine) 10 mg tablet 10 mg PO DAILY tab - Disposition 01 Discharged Home, Self-Care
--- NOTE | 2017-01-31 12:04 | Discharge Summary ---
Discharge Information Date of admission: 01/26/17 23:23 Anticipated date of discharge: 01/31/17 Attending Physician: Francisco Escobedo MD Primary care physician: Vilma Concepcion DO Consults: 01/27/17 09:30 Physician Consult [CONS] Routine Consulting Provider: Elia Champion Reason For Exam: L sided Chest pain Ordering Provider has Notified Certified Coatings Inspector: No Comment: Will call - Discharge Diagnosis (1) Hypertensive urgency, malignant Status: Resolved (2) Rheumatoid arthritis Status: Chronic (3) GERD (gastroesophageal reflux disease) Status: Chronic (4) RLS (restless legs syndrome) Status: Chronic (5) Hypothyroid Status: Chronic - Laboratory Labs: 01/31/17 04:32 01/31/17 04:33 - Microbiology Microbiology 01/27/17 23:13 Urine, Voided (Cc/notcc) Urine Culture - Final Escherichia coli History of Present Illness HPI: This is a 76 y/o female with a long standing history of HTN. She is managed by several anti hypertensive medications. Today around 2:30 she had a rather sudden onset of shortness of breath. This has not happened before The patient took her blood pressure and it was significantly elevated. The patient had a brief episode of chest pressure. She also had a mild frontal headache. Because of the shortness of breath and ongoing HTN, the patient presented to the ED where in fact her blood pressure was 205/84 at it's best. The patient states that she usually is in the 120's systolic. The patient denies any recent changes in her medications. She denies any over the counter medications. Attempts to improve the patient's blood pressure with hydralazine were unsuccessful. The patient is admitted into the IcU on nitroprusside gtt ( allergic to ca krysta) and further cardiac evaluation ongoing. The patient denies any focal neurological concerns. The patient reports that she had a heart cath in the past that was reported to be negative. 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 The patient did have a CT chest angio that was negative for clot. Objective Vital signs: Temperature 96.7 F L 01/31/17 11:56 Pulse Rate 57 L 01/31/17 11:56 Respiratory Rate 12 01/31/17 11:56 Blood Pressure 130/65 01/31/17 11:56 Pulse Oximetry 93 01/31/17 11:56 Rhythm: Normal Sinus Rhythm Height/Weight/BMI: Height 5 ft 4 in Weight 114.6 kg Body Mass Index 43.3 - Constitutional Present: no acute distress - Routine HEENT Exam Head: Present: normocephalic, atraumatic Eye: Present: EOMI, PERRL - Routine Respiratory Exam Present: CTA bilaterally - Routine Cardiovascular Exam Present: RRR, S1, S2 - Routine Abdominal Exam Present: soft, non distended, non tender - Routine Extremities Exam Absent: cyanosis, clubbing, edema - Routine Skin Exam Present: intact - Routine Neurological Exam Present: alert, oriented X3, CN II-XII intact - Routine Psychiatric Exam Present: normal affect, normal thought process, cooperative, good insight, good judgment Hospital Course SUMMARY - This is a 76 YO female that came to us with uncontrolled HTN (HTN emergency) and required Nipride drip and ICU care, as she appeared to have pulmonary edema due to her severe HTN; she has stabilized and her BP is better. Her medications were adjusted. Initial workup did not show YAIMA - pt had a 24 hr urine done for Pheochromocytoma - results are pending, she was prompted to follow up with her PCP for these results. 2-D echo (01/27) Dr Champion ([employer] Super[employer]) '................................... IMPRESSION 1. Left atrial dilation. 2. Mild left ventricular dilation. 3. Normal LV systolic function with ejection fraction of 65%. 4. Mitral annulus calcification with mitral sclerosis and mild mitral regurgitation. 5. Mild tricuspid regurgitation with moderate pulmonary hypertension with estimated pulmonary artery systolic pressure of 52. 6. Mild pulmonary insufficiency. .............................................." DIAGNOSIS 1) Uncontrolled HTN, on admission, associated with CHF and moderate pulmonary congestion causing her SOB, much improved at this time. W/U for Pheochromocytoma done - results pending. Her BP is now normal and she is stable for D/C home. - Workup for Pheochromocytoma PENDING. Renal U/S (01/27) "..................................... Impression: 1. No evidence of hemodynamically significant renal arterial stenosis. 2. Elevated resistive indices in the kidneys which are nonspecific but most commonly due to medical renal disease. Other causes include acute tubular necrosis. ............................................." a) Pulmonary infiltrates - Could be related to Rheumatoid lung, due fibrosis/MTX or edema - Did not resolve in X ray favoring scar. - X ray repeated on 01/28 - suggest chronic process - scar b) Pulmonary hypertension ? - Due to ? No hypoxemia on routine VS - May consider evaluating for ÁNGEL and other causes once systemic BP is controlled and Pheochromocytoma is excluded. 2) Atypical CP, could be related to RA or Fibromyalgia but also pt may have CAD. - Will need a stress test as outpatient to risk stratify. - Schedule for outpatient stress test with Dr Champion. 3) Escherichia coli UTI, no symptoms on admission - pt was taking at home Nitrofurantoin - the isolate was not tested against this antibiotic. - Received IV Rocephin x 4 days this should be enough for uncomplicated cystitis. 4) CKD, stage III (By history). - Creatinine stable at 1.4 - May consider checking a iPTH to establish chronicity of renal disease. 5) Fibromyalgia, RLS. 6) Hypothyroidism - well controlled at present. 7) Anemia, most likely anemia of inflammation - pt has RA and is receiving Remicade. - WBC a bit low, may follow up as outpatient. 8) Mild elevation of aminotransferases today, may follow up as outpatient. DISPOSITION - HOME THIS PM. Hospital course: 01/27/17 Cardiology Denies chest pain, states it was a pressure. Serial troponin levels are negative , EKG without ST changes. Patient has the following cardiac risk factors: HTN, HLD. Hypertensive urgency, malignant: Currently on Nitroprusside drip, with good control of BP. - Increase home Nifedipine to 60mg daily, - Increase Clonidine to 0.2mg daily. - Change home Metoprolol to Labetalol 100mg BID. - 24 urine for VMA, catecholamines, metanephrines and protein - renal artery duplex Thank you for allowing us to participate in the care of this patient. 01/28/17 This is a 76 YO female that came to us with uncontrolled HTN and required Nipride drip and ICU care, she has stabilized and her BP is much better now, having at this time residual pure systolic HTN. A/P 1) Uncontrolled HTN, possibly associated with CHF and moderate pulmonary congestion causing her SOB - Improved. - No YAIMA - Workup for Pheochromocytoma is ongoing. - Continue Clonidine, BB, Hydralazine. 2) Atypical CP, could be related to RA or Fibromyalgia but also pt may have CAD - TnI negative. - May need a stress test as outpatient to risk stratify. 3) Pulmonary infiltrates - Could be related to Rheumatoid lung, due fibrosis/MTX or edema - Since pt is stable will recheck CXR later today - if gone then pulmonary edema could be the explanation. 01/29/17 Patient remains off nipride drip; has been converted from metoprolol 100 twice a day to labetalol 100 twice a day, clonidine increased from 0.1 to 0.2 twice a day, and nifedipine ER increased from 30 to 60 daily. Remains on hydralazine at 25 mg 3 times daily. Was previously on spironolactone and diuretics have not been resumed. Blood pressures variable with systolics ranging from 124-165 in the past 6 hours. Stable to transfer out of the ICU and increase activities. May require further adjustments in dosing. Resume spironolactone. 24 hour urine for catecholamines/metanephrine pending. Renal sonogram with Doppler without evidence of renal artery stenosis but consistent with chronic kidney disease. No indication of pulmonary edema or pulmonary fibrosis on repeat chest x-ray yesterday. Urine culture with > 100,000 colonies Escherichia coli, sensitivities pending, continue ceftriaxone at present. Minimal elevation in troponin-EKG without acute changes. Chest pain likely muscular. Echocardiogram preserved ejection fraction of 65% and moderate pulmonary hypertension. Mild MR. Continue home dose levothyroxin and home regimen for restless legs/GERD. [place] 10 resumed when necessary for arthralgias/myalgias. 01/30/17 18:07 Increase Nifedipine to 90mg daily, additional 30mg given today. Okay with discharge whenever okay with Dr. Escobedo. Will plan follow up in 2 weeks and stress test as an outpatient to follow. Time spent with patient: 25 - 35 minutes Discharge Plan - [facility] Rec/Dispo [place] Instructions: Heart Failure (GEN) Prescriptions: New Cetirizine [Zyrtec] 10 mg PO DAILY tablet Hydralazine [Apresoline] 25 mg PO TIDWM 30 Days #90 tab Labetalol [Normodyne] 100 mg PO BID 30 Days #60 tab CloNIDine [Catapres] 0.2 mg PO BID 30 Days #60 tab NIFEdipine XL [Procardia Xl] 90 mg PO DAILY 30 Days #30 tab Continue Levothyroxine Sodium [Synthroid] 100 mcg PO DAILY #0 Aspirin [Aspir 81] 81 mg PO DAILY #0 Spironolactone [Aldactone] 25 mg PO DAILY #2 Cholecalciferol (Vitamin D3) [Vitamin D3] 4,000 mg PO DAILY Sertraline [Zoloft] 25 mg PO DAILY Pramipexole Di-HCl [Mirapex] 0.5 mg PO DAILY #0 Infliximab [Remicade] 100 mg IV .Q6W Magnesium Oxide [Magox 400] 400 mg PO DAILY prednisone 1 mg tablet 2 mg PO DAILY tab [place] 10 mg-acetaminophen 325 mg tablet 1 tab PO PRN PRN PRN Reason: Pain hydralazine 25 mg tablet 25 mg PO TID tab Discontinued Nitrofurantoin Macrocrystal [Nitrofurantoin] 100 mg PO HS Metoprolol Succinate [Toprol Xl] 100 mg PO BID #0 clonidine HCl 0.1 mg tablet 0.1 mg PO BID nifedipine ER 30 mg tablet,extended release 30 mg PO DAILY tab No Action Systane Eye Drops 1 drop OP PRN Pantoprazole Sodium [Protonix] 40 mg PO BID #0 Zyrtec (Cetirizine) 10 mg tablet 10 mg PO DAILY tab - Disposition 01 Discharged Home, Self-Care
== END 2017-01-31 15:25 | disposition home or self-care (01) | DRG 305 ==
LOC: ED 19:22 → CCU 23:15 → MED 01-29 18:38
PROVIDERS: ADMIT Emergency Medicine; ATTEND Internal Medicine